=== PATIENT | male | born 1945 | race Caucasian/White ===

== ENCOUNTER 2017-12-01 14:26 | Inpatient (IN) | payer MEDICARE ==
[~2017-12-01] VITALS: Ht 172.7 cm; Wt 111.1 kg
[2017-12-01] MEDS ORDERED: ACETAMINOPHEN 325MG TABLET PO STA (14:47)
[2017-12-01] MEDS ORDERED: SODIUM CHLORIDE 0.9% 1000ML BAG (SEPSIS BOLUS) IV ONE (15:00)
[2017-12-01] MEDS ORDERED: PIPERACILLIN/TAZ 3.375G PREMIX 50 ML IV ONE (15:00)
[2017-12-01] MEDS ORDERED: VANCOMYCIN 1 G PREMIX 200 ML IV ONE (15:00)
[2017-12-01 15:37] LABS: BASOPHILS % 0.1 % (0.0-2.0); HEMATOCRIT. 33.9 % (42.0-52.0); HEMOGLOBIN. 11.4 g/dL (14.0-18.0); LYMPHOCYTES % 7.4 % (20.0-50.0); MEAN CORPUSCULAR HEMOGLOBIN 31.6 pg (28.0-32.0); MEAN CORPUSCULAR VOLUME 93.9 fL (80.0-94.0); MEAN PLATELET VOLUME 8.3 fl (7.4-10.4); NEUTROPHILS % 86.5 % (40.0-76.0); PLATELET 255 x1000/uL (130-400); RED BLOOD CELL COUNT 3.61 mill/uL (4.7-6.1); RED CELL DISTRIBUTION WIDTH 13.8 % (11.6-14.6)
[2017-12-01 15:39] LABS: CHLORIDE 90 mEq/L (98-107)
[2017-12-01 15:40] LABS: INR 1.2
[2017-12-01 16:03] LABS: BG BASE EXCESS -4.5 mmol/L (-2.0-2.0); BG CARBOXYHEMOGLOBIN 0.6 % (0.5-1.5); BG DEOXYHEMOGLOBIN 7.1 % (0.0-5.0); BG FRACTION INSPIRED OXYGEN 21; BG HCO3 ACT 20.1 mmol/L (22.0-26.0); BG METHEMOGLOBIN 0.2 % (0.0-1.5); BG OXYGEN SATURATION 92.8 % (92.0-98.5); BG OXYHEMOGLOBIN 92.1 % (94.0-97.0); BG PCO2 35.8 mmHg (35.0-45.0); BG PH 7.367 (7.350-7.450); BG PO2 71.3 mmHg (75.0-100.0); BG SAMPLE SITE RIGHT RADIAL; BG TOTAL HEMOGLOBIN 13.3 g/dL (12.0-18.0); BG VENT MODE ROOM AIR
[2017-12-01 16:37] LABS: CLARITY URINE CLEAR (CLEAR); COLOR URINE YELLOW (YELLOW); SPECIFIC GRAVITY URINE 1.026 (1.005-1.030)
[2017-12-01 16:38] LABS: KETONES URINE 1+ (NEGATIVE); LEUKOCYTE ESTERASE URINE NEGATIVE (NEGATIVE); NITRITE URINE NEGATIVE (NEGATIVE); OCCULT BLOOD URINE 2+ (NEGATIVE); PROTEIN URINE 3+ (NEGATIVE); UROBILINOGEN URINE 0.2 E.U./dL (0.2-1.0)
[2017-12-01] MEDS ORDERED: INSULIN REGULAR (HUMULIN R) UD 100 UNITS/ML SYR IV ONE (16:45)
[2017-12-01] MEDS ORDERED: INSULIN REGULAR (HUMULIN R) 300UNITS/3ML IV ONE (17:00)
[2017-12-01] MEDS ORDERED: SODIUM CHLORIDE 0.9% 1,000 ML IV ONE (20:17)
[2017-12-01] MEDS ORDERED: INSULIN REGULAR (HUMULIN R) 300UNITS/3ML SUBCUT ONE ×2 (20:30)
[2017-12-01 21:00] VITALS: BP 137/60
[2017-12-01] MEDS ORDERED: VANCOMYCIN 1 G PREMIX 200 ML IV SCH (22:00)
[2017-12-01] MEDS ORDERED: MAGNESIUM/ALUMINUM HYDROXIDE/SIMETHICONE 30ML UDC PO PRN (22:00)
[2017-12-01] MEDS ORDERED: PIPERACILLIN/TAZ 3.375G PREMIX 50 ML IV SCH (22:00)
[2017-12-01] MEDS: NITROGLYCERIN OINT 1GM/INCH UDPKT TD SCH (22:00)
[2017-12-01] MEDS ORDERED: DEXTROSE 50% WATER 50ML SYRINGE IV PRN (22:00)
[2017-12-01] MEDS ORDERED: ONDANSETRON HCL 4MG/2ML VIAL IV PRN (22:00)
[2017-12-01] MEDS ORDERED: DIPHENHYDRAMINE 50MG/ML VIAL IV PRN (22:00)
[2017-12-01] MEDS: SODIUM CHLORIDE 0.9% 1,000 ML IV SCH (23:13)
[2017-12-02] VITALS: BP 152/62
[2017-12-02] MEDS: PREDNISOLONE ACETATE 1% OPHTH DROPS 1ML RIGHTEYE SCH ×4 (00:19→18:35)
[2017-12-02] MEDS: INSULIN GLARGINE UD 100 UNITS/ML SYR SUBCUT SCH ×2 (00:25→21:57)
[2017-12-02] MEDS: PIPERACILLIN/TAZ 2.25G PREMIX 50 ML IV SCH ×4 (00:49→21:49)
[2017-12-02] MEDS ORDERED: ATOR20TA MT (01:17)
[2017-12-02] MEDS ORDERED: TRIC54 MT (01:17)
[2017-12-02] MEDS ORDERED: METO37.5 MT (01:17)
[2017-12-02] MEDS ORDERED: VIGAMX RIGHTEYE (01:17)
[2017-12-02] MEDS ORDERED: ESCI5SOL2 PO (01:17)
[2017-12-02] MEDS ORDERED: ALLO300T2 MT (01:17)
[2017-12-02] MEDS ORDERED: SULF-288 MT (01:17)
[2017-12-02] MEDS ORDERED: AMLO5TAB4 MT (01:17)
[2017-12-02] MEDS ORDERED: ISOS30TA6 MT (01:17)
[2017-12-02] MEDS ORDERED: GABA300S PO (01:17)
[2017-12-02] MEDS ORDERED: PRED1DRO RIGHTEYE (01:17)
[2017-12-02] MEDS ORDERED: OMEP40CA34 PO (01:17)
[2017-12-02] MEDS ORDERED: CLOP75TA16 MT (01:17)
[2017-12-02] MEDS ORDERED: ASPI-1159 MT (01:17)
[2017-12-02] MEDS ORDERED: GLIP-191 MT (01:17)
[2017-12-02] MEDS ORDERED: LOSA1TAB34 MT (01:17)
[2017-12-02] MEDS ORDERED: METF-815 PO (01:17)
[2017-12-02] MEDS ORDERED: ACUL5 RIGHTEYE (01:17)
[2017-12-02] MEDS: VANCOMYCIN 1250MG in DEXTROSE 5% WATER 250ML IV SCH (02:08)
[2017-12-02] MEDS: MORPHINE SULFATE 4 MG/ML CPJ (NOT FOR IM USE) IV PRN ×2 (02:17→08:39)
[2017-12-02 04:00] VITALS: BP 103/56
[2017-12-02] MEDS: BLOOD SUGAR DIAGNOSTIC STRIP TEST SCH ×4 (05:55→21:49)
[2017-12-02] MEDS: NITROGLYCERIN OINT 1GM/INCH UDPKT TD SCH ×3 (05:56→21:51)
[2017-12-02] MEDS: INSULIN LISPRO 100 UNITS/ML SUBCUT SCH ×4 (06:23→21:57)
[2017-12-02 07:37] LABS: BASOPHILS % 0.2 % (0.0-2.0); EOSINOPHILS % 0.3 % (0.0-5.0); HEMOGLOBIN. 10.7 g/dL (14.0-18.0); LYMPHOCYTES % 13.6 % (20.0-50.0); MEAN CORPUSCULAR HEMOGLOBIN 31.6 pg (28.0-32.0); MEAN CORPUSCULAR VOLUME 91.8 fL (80.0-94.0); MONOCYTES % 4.5 % (2.0-8.0); NEUTROPHILS % 81.4 % (40.0-76.0); PLATELET 230 x1000/uL (130-400); RED BLOOD CELL COUNT 3.38 mill/uL (4.7-6.1); RED CELL DISTRIBUTION WIDTH 13.5 % (11.6-14.6)
[2017-12-02 08:00] VITALS: BP 119/43
[2017-12-02] MEDS: SODIUM CHLORIDE 0.9% 1,000 ML IV SCH ×2 (08:23→14:57)
[2017-12-02] MEDS: PANTOPRAZOLE SODIUM 40 MG/VIAL IV SCH (08:24)
[2017-12-02] MEDS: ENOXAPARIN 30MG/0.3ML SYR SUBCUT SCH ×2 (08:24→21:00)
[2017-12-02] MEDS ORDERED: ENOXAPARIN 40MG/0.4ML SYR SUBCUT SCH (09:00)
[2017-12-02] MEDS ORDERED: ENOXAPARIN 30MG/0.3ML SYR SUBCUT SCH ×2 (09:00)
[2017-12-02] MEDS ORDERED: BACITRACIN ZINC 15GM TUBE TOP ONE (09:37)
[2017-12-02] MEDS ORDERED: NORMAL SALINE 0.9% 10 ML SYR ONE (09:37)
[2017-12-02] MEDS ORDERED: LIDOCAINE HCL/PF 1% 10 MG/ML 5ML VIAL ONE (09:37)
[2017-12-02] MEDS ORDERED: BUPIVACAINE HCL/PF 0.5% (5MG/ML) 10ML ONE (09:37)
[2017-12-02] MEDS ORDERED: SODIUM CHLORIDE 0.9% IRRIG SOL 3,000 ML IR ONE (09:38)
[2017-12-02] MEDS ORDERED: BACITRACIN 50,000 UNITS/VIAL ONE (09:38)
[2017-12-02] MEDS ORDERED: DEXAMETHASONE 4MG/ML 1ML VIAL ONE (09:47)
[2017-12-02] MEDS ORDERED: TRIAMCINOLONE ACETONIDE 40MG/ML 1ML VIAL ONE (09:47)
[2017-12-02] MEDS ORDERED: GENTAMICIN SULF 40MG/ML 2ML VIAL ONE (09:47)
[2017-12-02] MEDS ORDERED: MIDAZOLAM HCL 2 MG/2 ML VIAL ONE (09:53)
[2017-12-02] MEDS ORDERED: FENTANYL CITRATE/PF 50MCG/ML 2ML VIAL ONE (09:53)
[2017-12-02] MEDS ORDERED: ROCURONIUM BROMIDE 10MG/ML VIAL 5ML IV ONE (09:53)
[2017-12-02] MEDS ORDERED: METOCLOPRAMIDE HCL 10MG/2ML VIAL ONE (09:56)
[2017-12-02] MEDS ORDERED: ONDANSETRON HCL 4MG/2ML VIAL ONE (09:56)
[2017-12-02] MEDS ORDERED: ETOMIDATE 2MG/ML 10ML VIAL IV ONE (09:56)
[2017-12-02] MEDS ORDERED: SUCCINYLCHOLINE CHLORIDE 200MG/10ML VIAL IV ONE (09:56)
[2017-12-02] MEDS ORDERED: EPHEDRINE SULFATE 50MG/ML VIAL ONE (09:56)
[2017-12-02] MEDS ORDERED: MAGNESIUM SULFATE 2 GM in DEXTROSE 5% WATER 50 ML IV NR (10:30)
[2017-12-02] MEDS ORDERED: ONDANSETRON HCL 4MG/2ML VIAL IV PRN ×3 (10:45→11:30)
[2017-12-02] MEDS ORDERED: MEPERIDINE HCL/PF 25MG/ML CPJ IV PRN ×2 (10:45)
[2017-12-02] MEDS ORDERED: MORPHINE SULFATE 4 MG/ML CPJ (NOT FOR IM USE) IV PRN ×2 (10:45)
[2017-12-02] MEDS ORDERED: HYDROMORPHONE HCL/PF 2MG/ML CPJ IV PRN ×2 (10:45)
[2017-12-02] MEDS ORDERED: FENTANYL CITRATE/PF 50MCG/ML 2ML VIAL IV PRN ×2 (10:45)
[2017-12-02 16:00] VITALS: BP 147/68
[2017-12-02 20:00] VITALS: BP 143/58
[2017-12-03] VITALS: BP 140/49
[2017-12-03] MEDS: IPRATROPIUM/ALBUTEROL 0.5-3(2.5)MG/3ML NEB INH PRN ×2 (00:08→21:00)
[2017-12-03] MEDS: PREDNISOLONE ACETATE 1% OPHTH DROPS 1ML RIGHTEYE SCH ×4 (00:13→17:38)
[2017-12-03] MEDS: ACETAMINOPHEN 325MG TABLET PO PRN ×3 (00:14→23:50)
[2017-12-03] MEDS: SODIUM CHLORIDE 0.9% 1,000 ML IV SCH ×4 (00:14→22:57)
[2017-12-03] MEDS: VANCOMYCIN 1250MG in DEXTROSE 5% WATER 250ML IV SCH ×2 (02:57→18:49)
[2017-12-03 04:00] VITALS: BP 150/63
[2017-12-03] MEDS: PIPERACILLIN/TAZ 2.25G PREMIX 50 ML IV SCH ×5 (04:33→22:10)
[2017-12-03] MEDS: NITROGLYCERIN OINT 1GM/INCH UDPKT TD SCH ×3 (05:34→21:27)
[2017-12-03] MEDS: BLOOD SUGAR DIAGNOSTIC STRIP TEST SCH ×4 (06:35→20:53)
[2017-12-03] MEDS: INSULIN LISPRO 100 UNITS/ML SUBCUT SCH ×4 (06:49→21:26)
[2017-12-03 07:53] VITALS: BP 105/48
[2017-12-03] MEDS: ENOXAPARIN 30MG/0.3ML SYR SUBCUT SCH ×2 (09:00→21:00)
[2017-12-03] MEDS ORDERED: SODIUM BICARBONATE 4% (2.4MEQ) 5ML VIAL IV ONE (11:37)
[2017-12-03] MEDS ORDERED: LIDOCAINE HCL 1% 20ML VIAL (Pyxis) INJ ONE (11:37)
[2017-12-03 12:00] VITALS: BP 135/61
[2017-12-03] MEDS: PANTOPRAZOLE SODIUM 40 MG/VIAL IV SCH (13:22)
[2017-12-03] MEDS: MORPHINE SULFATE 4 MG/ML CPJ (NOT FOR IM USE) IV PRN ×2 (13:27→17:00)
[2017-12-03 15:43] LABS: BASOPHILS % 0.1 % (0.0-2.0); EOSINOPHILS % 0.6 % (0.0-5.0); HEMATOCRIT. 28.8 % (42.0-52.0); HEMOGLOBIN. 9.9 g/dL (14.0-18.0); LYMPHOCYTES % 11.5 % (20.0-50.0); MEAN CORPUSCULAR HEMOGLOBIN 32.1 pg (28.0-32.0); MEAN CORPUSCULAR VOLUME 93.5 fL (80.0-94.0); MEAN PLATELET VOLUME 8.1 fl (7.4-10.4); MONOCYTES % 5.1 % (2.0-8.0); NEUTROPHILS % 82.7 % (40.0-76.0); PLATELET 198 x1000/uL (130-400); RED BLOOD CELL COUNT 3.08 mill/uL (4.7-6.1)
[2017-12-03 16:00] VITALS: BP 123/49
[2017-12-03 20:00] VITALS: BP 132/58
[2017-12-03] MEDS: INSULIN GLARGINE UD 100 UNITS/ML SYR SUBCUT SCH (21:26)
[2017-12-04] VITALS: BP 144/60
[2017-12-04] MEDS: PREDNISOLONE ACETATE 1% OPHTH DROPS 1ML RIGHTEYE SCH ×4 (00:19→18:43)
[2017-12-04] MEDS: SODIUM CHLORIDE 0.9% 1,000 ML IV SCH ×2 (03:39→21:14)
[2017-12-04] MEDS: PIPERACILLIN/TAZ 2.25G PREMIX 50 ML IV SCH ×4 (03:39→21:14)
[2017-12-04 04:00] VITALS: BP 133/57
[2017-12-04] MEDS: VANCOMYCIN 1250MG in DEXTROSE 5% WATER 250ML IV SCH (05:34)
[2017-12-04] MEDS: BLOOD SUGAR DIAGNOSTIC STRIP TEST SCH ×4 (05:44→20:46)
[2017-12-04] MEDS: NITROGLYCERIN OINT 1GM/INCH UDPKT TD SCH ×3 (06:10→21:44)
[2017-12-04] MEDS: INSULIN LISPRO 100 UNITS/ML SUBCUT SCH ×4 (06:11→20:51)
[2017-12-04 08:00] VITALS: BP 140/59
[2017-12-04] MEDS: ENOXAPARIN 30MG/0.3ML SYR SUBCUT SCH ×2 (09:34→20:46)
[2017-12-04] MEDS: FAMOTIDINE 20MG TABLET PO SCH ×2 (09:34→20:46)
[2017-12-04] MEDS: MORPHINE SULFATE 4 MG/ML CPJ (NOT FOR IM USE) IV PRN ×3 (09:39→22:33)
[2017-12-04] MEDS: ACETAMINOPHEN 325MG TABLET PO PRN ×2 (09:39→23:48)
[2017-12-04 12:00] VITALS: BP 113/53
[2017-12-04] MEDS ORDERED: FUROSEMIDE 40MG/4ML VIAL IVP NR (15:15)
[2017-12-04] MEDS: IPRATROPIUM/ALBUTEROL 0.5-3(2.5)MG/3ML NEB INH PRN (15:37)
[2017-12-04 20:00] VITALS: BP 135/51
[2017-12-04] MEDS: INSULIN GLARGINE UD 100 UNITS/ML SYR SUBCUT SCH (21:33)
[2017-12-05] VITALS: BP 143/59
[2017-12-05] MEDS: PREDNISOLONE ACETATE 1% OPHTH DROPS 1ML RIGHTEYE SCH ×4 (03:51→18:17)
[2017-12-05] MEDS: HYDROMORPHONE HCL/PF 2MG/ML CPJ IV PRN ×4 (03:57→22:26)
[2017-12-05 04:00] VITALS: BP 149/62
[2017-12-05] MEDS: PIPERACILLIN/TAZ 2.25G PREMIX 50 ML IV SCH ×4 (04:36→21:23)
[2017-12-05] MEDS: BLOOD SUGAR DIAGNOSTIC STRIP TEST SCH ×4 (05:57→21:19)
[2017-12-05] MEDS: INSULIN LISPRO 100 UNITS/ML SUBCUT SCH ×4 (06:04→21:28)
[2017-12-05 06:21] LABS: BASOPHILS % 0.4 % (0.0-2.0); EOSINOPHILS % 0.8 % (0.0-5.0); HEMATOCRIT. 28.9 % (42.0-52.0); HEMOGLOBIN. 9.9 g/dL (14.0-18.0); LYMPHOCYTES % 17.4 % (20.0-50.0); MEAN CORPUSCULAR HEMOGLOBIN 31.9 pg (28.0-32.0); MEAN CORPUSCULAR VOLUME 93.5 fL (80.0-94.0); MEAN PLATELET VOLUME 8.3 fl (7.4-10.4); MONOCYTES % 5.6 % (2.0-8.0); NEUTROPHILS % 75.8 % (40.0-76.0); PLATELET 194 x1000/uL (130-400); RED BLOOD CELL COUNT 3.09 mill/uL (4.7-6.1); RED CELL DISTRIBUTION WIDTH 13.6 % (11.6-14.6)
[2017-12-05] MEDS: NITROGLYCERIN OINT 1GM/INCH UDPKT TD SCH ×3 (06:42→22:18)
[2017-12-05] MEDS ORDERED: SODIUM CHLORIDE 0.9% 1,000 ML IV SCH (08:35)
[2017-12-05 08:38] VITALS: BP 130/58
[2017-12-05] MEDS: FAMOTIDINE 20MG TABLET PO SCH ×2 (09:51→21:23)
[2017-12-05] MEDS: ENOXAPARIN 30MG/0.3ML SYR SUBCUT SCH (09:51)
[2017-12-05] MEDS ORDERED: POTASSIUM CHLORIDE 20MEQ TABLET SR PO SCH (10:45)
[2017-12-05 11:47] VITALS: BP 135/54
[2017-12-05 15:41] VITALS: BP 133/55
[2017-12-05] MEDS: CLOPIDOGREL 75MG TABLET PO SCH (16:06)
[2017-12-05] MEDS: ASPIRIN 81MG TABLET PO SCH (16:06)
[2017-12-05 16:33] LABS: BG BASE EXCESS 5.5 mmol/L (-2.0-2.0); BG CARBOXYHEMOGLOBIN 0.1 % (0.5-1.5); BG DEOXYHEMOGLOBIN 8.7 % (0.0-5.0); BG FRACTION INSPIRED OXYGEN 24; BG HCO3 ACT 30.9 mmol/L (22.0-26.0); BG METHEMOGLOBIN 0.3 % (0.0-1.5); BG OXYGEN SATURATION 91.3 % (92.0-98.5); BG OXYHEMOGLOBIN 90.9 % (94.0-97.0); BG PCO2 48.8 mmHg (35.0-45.0); BG PH 7.419 (7.350-7.450); BG PO2 58.6 mmHg (75.0-100.0); BG SAMPLE SITE LEFT RADIAL; BG TOTAL HEMOGLOBIN 10.7 g/dL (12.0-18.0); BG VENT MODE NASAL CANNULA
[2017-12-05 20:00] VITALS: BP 141/52
[2017-12-05] MEDS: IPRATROPIUM/ALBUTEROL 0.5-3(2.5)MG/3ML NEB HHN SCH (20:53)
[2017-12-05] MEDS: INSULIN GLARGINE UD 100 UNITS/ML SYR SUBCUT SCH (21:28)
[2017-12-06] VITALS: BP 145/60
[2017-12-06] MEDS: PREDNISOLONE ACETATE 1% OPHTH DROPS 1ML RIGHTEYE SCH ×4 (00:51→17:28)
[2017-12-06] MEDS: IPRATROPIUM/ALBUTEROL 0.5-3(2.5)MG/3ML NEB HHN SCH ×4 (01:32→20:05)
[2017-12-06] MEDS: PIPERACILLIN/TAZ 2.25G PREMIX 50 ML IV SCH ×3 (03:01→18:00)
[2017-12-06] MEDS: HYDROMORPHONE HCL/PF 2MG/ML CPJ IV PRN ×3 (03:07→11:56)
[2017-12-06 04:00] VITALS: BP 138/59
[2017-12-06] MEDS: BLOOD SUGAR DIAGNOSTIC STRIP TEST SCH ×4 (06:25→20:58)
[2017-12-06] MEDS: NITROGLYCERIN OINT 1GM/INCH UDPKT TD SCH ×3 (06:27→21:08)
[2017-12-06] MEDS: INSULIN LISPRO 100 UNITS/ML SUBCUT SCH ×4 (06:40→20:58)
[2017-12-06 07:33] LABS: HEMATOCRIT 29.4 % (42.0-52.0); MEAN CORPUSCULAR HEMOGLOBIN 31.8 pg (28.0-32.0); MEAN CORPUSCULAR VOLUME 93.6 fL (80.0-94.0); PLATELET 218 x1000/uL (130-400); RED BLOOD CELL COUNT 3.14 mill/uL (4.7-6.1); RED CELL DISTRIBUTION WIDTH 13.6 % (11.6-14.6)
[2017-12-06] MEDS: FAMOTIDINE 20MG TABLET PO SCH ×2 (08:16→21:09)
[2017-12-06] MEDS: CLOPIDOGREL 75MG TABLET PO SCH (08:16)
[2017-12-06] MEDS: ASPIRIN 81MG TABLET PO SCH (08:16)
[2017-12-06 12:00] VITALS: BP 104/64
[2017-12-06 12:30] LABS: BG BASE EXCESS 6.1 mmol/L (-2.0-2.0); BG CARBOXYHEMOGLOBIN 0.4 % (0.5-1.5); BG DEOXYHEMOGLOBIN 18.1 % (0.0-5.0); BG FRACTION INSPIRED OXYGEN 21; BG HCO3 ACT 31.8 mmol/L (22.0-26.0); BG METHEMOGLOBIN 0.1 % (0.0-1.5); BG OXYGEN SATURATION 81.8 % (92.0-98.5); BG OXYHEMOGLOBIN 81.4 % (94.0-97.0); BG PCO2 51.4 mmHg (35.0-45.0); BG PH 7.409 (7.350-7.450); BG PO2 47.1 mmHg (75.0-100.0); BG SAMPLE SITE LEFT RADIAL; BG TOTAL HEMOGLOBIN 10.4 g/dL (12.0-18.0); BG VENT MODE ROOM AIR
[2017-12-06 14:07] LABS: BG BASE EXCESS 4.4 mmol/L (-2.0-2.0); BG CARBOXYHEMOGLOBIN 0.7 % (0.5-1.5); BG DEOXYHEMOGLOBIN 5.8 % (0.0-5.0); BG HCO3 ACT 30.2 mmol/L (22.0-26.0); BG METHEMOGLOBIN 0.1 % (0.0-1.5); BG OXYGEN SATURATION 94.2 % (92.0-98.5); BG OXYHEMOGLOBIN 93.4 % (94.0-97.0); BG PH 7.391 (7.350-7.450); BG PO2 75.3 mmHg (75.0-100.0); BG SAMPLE SITE RIGHT RADIAL; BG TOTAL HEMOGLOBIN 11.6 g/dL (12.0-18.0); BG VENT MODE NASAL CANNULA
[2017-12-06 16:00] VITALS: BP 147/58
[2017-12-06] MEDS ORDERED: MORPHINE SULFATE 4 MG/ML CPJ (NOT FOR IM USE) IV PRN (18:00)
[2017-12-06] MEDS: PIPERACILLIN/TAZ 3.375G PREMIX 50 ML IV SCH (18:00)
[2017-12-06 20:00] VITALS: BP 163/68
[2017-12-06] MEDS: CLONIDINE 0.1MG TABLET PO PRN (21:08)
[2017-12-06] MEDS: INSULIN GLARGINE UD 100 UNITS/ML SYR SUBCUT SCH (21:13)
[2017-12-07] VITALS: BP 153/60
[2017-12-07] MEDS: PREDNISOLONE ACETATE 1% OPHTH DROPS 1ML RIGHTEYE SCH ×4 (00:11→17:41)
[2017-12-07] MEDS: ACETAMINOPHEN 325MG TABLET PO PRN ×3 (00:19→20:22)
[2017-12-07] MEDS: PIPERACILLIN/TAZ 3.375G PREMIX 50 ML IV SCH ×4 (00:34→17:40)
[2017-12-07] MEDS: IPRATROPIUM/ALBUTEROL 0.5-3(2.5)MG/3ML NEB HHN SCH ×2 (01:46→08:19)
[2017-12-07 04:00] VITALS: BP 162/62
[2017-12-07] MEDS: BLOOD SUGAR DIAGNOSTIC STRIP TEST SCH ×4 (06:23→20:40)
[2017-12-07] MEDS: NITROGLYCERIN OINT 1GM/INCH UDPKT TD SCH ×3 (06:50→21:15)
[2017-12-07] MEDS: INSULIN LISPRO 100 UNITS/ML SUBCUT SCH ×4 (06:50→20:40)
[2017-12-07 07:31] LABS: HEMATOCRIT 30.3 % (42.0-52.0); HEMOGLOBIN 10.3 g/dL (14.0-18.0); MEAN CORPUSCULAR HEMOGLOBIN 31.5 pg (28.0-32.0); MEAN CORPUSCULAR VOLUME 92.7 fL (80.0-94.0); PLATELET 260 x1000/uL (130-400); RED BLOOD CELL COUNT 3.27 mill/uL (4.7-6.1); RED CELL DISTRIBUTION WIDTH 13.8 % (11.6-14.6)
[2017-12-07 08:00] VITALS: BP 144/53
[2017-12-07] MEDS: FAMOTIDINE 20MG TABLET PO SCH ×2 (09:52→20:22)
[2017-12-07] MEDS: ASPIRIN 81MG TABLET PO SCH (09:52)
[2017-12-07] MEDS: CLOPIDOGREL 75MG TABLET PO SCH (09:52)
[2017-12-07] MEDS ORDERED: POTASSIUM CHLORIDE 20MEQ TABLET SR PO NR (10:45)
[2017-12-07 12:40] VITALS: BP 141/52
[2017-12-07] MEDS ORDERED: MORPHINE SULFATE 4 MG/ML CPJ (NOT FOR IM USE) IV PRN (13:00)
[2017-12-07 16:23] VITALS: BP 153/76
[2017-12-07 20:00] VITALS: BP 161/67
[2017-12-07] MEDS ORDERED: INSULIN GLARGINE UD 100 UNITS/ML SYR SUBCUT SCH ×2 (22:00)
[2017-12-08] VITALS: BP 150/68
[2017-12-08] MEDS: PREDNISOLONE ACETATE 1% OPHTH DROPS 1ML RIGHTEYE SCH ×3 (00:04→11:26)
[2017-12-08] MEDS: PIPERACILLIN/TAZ 3.375G PREMIX 50 ML IV SCH ×3 (00:04→11:26)
[2017-12-08] MEDS: IPRATROPIUM/ALBUTEROL 0.5-3(2.5)MG/3ML NEB HHN SCH ×3 (01:55→14:45)
[2017-12-08 04:00] VITALS: BP 137/68
[2017-12-08] MEDS: NITROGLYCERIN OINT 1GM/INCH UDPKT TD SCH ×2 (05:10→14:25)
[2017-12-08] MEDS: INSULIN LISPRO 100 UNITS/ML SUBCUT SCH ×3 (06:22→17:02)
[2017-12-08] MEDS: BLOOD SUGAR DIAGNOSTIC STRIP TEST SCH ×3 (06:22→17:02)
[2017-12-08 06:57] LABS: HEMATOCRIT 28.8 % (42.0-52.0); MEAN CORPUSCULAR HEMOGLOBIN 32.1 pg (28.0-32.0); MEAN CORPUSCULAR VOLUME 92.3 fL (80.0-94.0); PLATELET 273 x1000/uL (130-400); RED BLOOD CELL COUNT 3.12 mill/uL (4.7-6.1); RED CELL DISTRIBUTION WIDTH 13.8 % (11.6-14.6)
[2017-12-08 08:00] VITALS: BP 189/66
[2017-12-08] MEDS: FAMOTIDINE 20MG TABLET PO SCH (08:12)
[2017-12-08] MEDS: CLOPIDOGREL 75MG TABLET PO SCH (08:12)
[2017-12-08] MEDS: CLONIDINE 0.1MG TABLET PO PRN (08:12)
[2017-12-08] MEDS: ASPIRIN 81MG TABLET PO SCH (08:12)
[2017-12-08 12:00] VITALS: BP 128/74
[2017-12-08] MEDS ORDERED: POTASSIUM CHLORIDE 20MEQ TABLET SR PO NR (12:45)
[2017-12-08 12:49] VITALS: BP 123/70
[2017-12-08 16:00] VITALS: BP 153/71
== END 2017-12-08 18:34 | DRG 853 ==
LOC: ER 14:36 → EDBD 17:05 → 8WST 17:05 → EDBEDREQ 17:07 → EDBEDREQSVC 17:07 → ENRESERV 19:44
PROVIDERS: ADMIT Internal Medicine; ATTEND Internal Medicine
PROC: 0Y6N0ZB Detachment at Left Foot, Partial 2nd Ray, Open Approach (ICD-10-PCS; 2017-12-02)
PROC: 0Y6N0ZC Detachment at Left Foot, Partial 3rd Ray, Open Approach (ICD-10-PCS; 2017-12-02)
PROC: 0QBP0ZZ Excision of Left Metatarsal, Open Approach (ICD-10-PCS; principal; 2017-12-02 09:00)
PROC: B5181ZA Fluoroscopy of Superior Vena Cava using Low Osmolar Contrast, Guidance (ICD-10-PCS; 2017-12-03)
PROC: 02HV33Z Insertion of Infusion Device into Superior Vena Cava, Percutaneous Approach (ICD-10-PCS; 2017-12-03)
PROC: B548ZZA Ultrasonography of Superior Vena Cava, Guidance (ICD-10-PCS; 2017-12-03)
DX: A41.9 Sepsis, unspecified organism (principal); E43 Unspecified severe protein-calorie malnutrition; A48.0 Gas gangrene; L03.115 Cellulitis of right lower limb; E87.3 Alkalosis; L02.612 Cutaneous abscess of left foot; L03.116 Cellulitis of left lower limb; E11.52 Type 2 diabetes mellitus with diabetic peripheral angiopathy with gangrene; N17.9 Acute kidney failure, unspecified; M86.9 Osteomyelitis, unspecified; E11.65 Type 2 diabetes mellitus with hyperglycemia; I25.10 Atherosclerotic heart disease of native coronary artery without angina pectoris; I10 Essential (primary) hypertension; D64.9 Anemia, unspecified; E66.9 Obesity, unspecified; E78.00 Pure hypercholesterolemia, unspecified; E87.6 Hypokalemia; F17.290 Nicotine dependence, other tobacco product, uncomplicated; J45.909 Unspecified asthma, uncomplicated; M10.9 Gout, unspecified; W25.XXXA Contact with sharp glass, initial encounter; E11.69 Type 2 diabetes mellitus with other specified complication; W45.8XXA Other foreign body or object entering through skin, initial encounter; Z79.4 Long term (current) use of insulin; R65.20 Severe sepsis without septic shock; Z82.49 Family history of ischemic heart disease and other diseases of the circulatory system; Z83.3 Family history of diabetes mellitus; Z91.14 Patient's other noncompliance with medication regimen; Z68.37 Body mass index [BMI] 37.0-37.9, adult; Z95.5 Presence of coronary angioplasty implant and graft; Y93.89 Activity, other specified; Y92.89 Other specified places as the place of occurrence of the external cause; Y99.8 Other external cause status
CPT/HCPCS: 36415; 36569; 36600; 70450; 71045; 73630; 76937; 77001; 80048; 80053; 80202; 81003; 82375; 82805; 82962; 83036; 83605; 83735; 84550; 85025; 85027; 85610; 86850; 86900; 87040; 87070; 87075; 87076; 87086; 87205; 88305; 88311; 93005; 93306; 93923; 94002; 94640; 96365; 96368; 96372; 96375; 97022; 97116; 97162; 99291; A4216; C1725; C9113; J0330; J1100; J1170; J1580; J1650; J1815; J1940; J2250; J2270; J2405; J2543; J2765; J3010; J3301; J3370; J3475; J3490; J7030; J7040; J7060; J7620

== ENCOUNTER 2021-02-24 19:37 | Inpatient (IN) | payer MEDICARE ==
[~2021-02-24] VITALS: Ht 175.3 cm; Wt 99.8 kg
[~2021-02-24 19:37] MED LIST: ACUL5 RIGHTEYE; ALLO300T2 MT; AMLO5TAB4 MT; ASPI-1497 MT; ATOR20TA MT; CLOP-31 MT; ESCI5SOL2 PO; GABA300S PO; GLIP-191 MT; ISOS30TA91 MT; LOSA1TAB34 MT; METF-873 PO; METO37.5 MT; OMEP40CA20 PO; PRED1DRO RIGHTEYE; SULF-13 MT; TRIC54 MT; VIGAMX RIGHTEYE
[2021-02-24 20:46] LABS: BASOPHILS % 0.1 % (0.0-2.0); EOSINOPHILS % 1.1 % (0.0-5.0); HEMOGLOBIN. 9.5 g/dL (14.0-18.0); LYMPHOCYTES % 9.6 % (20.0-50.0); MEAN CORPUSCULAR HEMOGLOBIN 32.3 pg (28.0-32.0); MEAN CORPUSCULAR VOLUME 98.7 fL (80.0-94.0); MEAN PLATELET VOLUME 7.1 fl (7.4-10.4); MONOCYTES % 5.8 % (2.0-8.0); NEUTROPHILS % 83.4 % (40.0-76.0); PLATELET 139 x1000/uL (130-400); RED BLOOD CELL COUNT 2.94 mill/uL (4.7-6.1); RED CELL DISTRIBUTION WIDTH 15.9 % (11.6-14.6)
[2021-02-24 20:54] LABS: CHLORIDE 105 mEq/L (98-107)
[2021-02-24 23:50] VITALS: BP 114/47
[2021-02-25] VITALS: BP 114/47
[2021-02-25 04:00] VITALS: BP 93/42
[2021-02-25] MEDS ORDERED: DEXTROSE 50% WATER 50ML SYRINGE IV PRN (05:00)
[2021-02-25] MEDS ORDERED: HYDROCODONE/ACETAMINOPHEN 5/325MG TABLET PO PRN (05:00)
[2021-02-25] MEDS ORDERED: SODIUM CHLORIDE 0.45% 1,000 ML IV SCH (05:00)
[2021-02-25] MEDS ORDERED: NALOXONE HCL 0.4 MG/ML 1ML VIAL IV PRN (05:15)
[2021-02-25] MEDS ORDERED: FURO40TA5 MT (05:25)
[2021-02-25] MEDS ORDERED: ATOR40TA70 MT (05:27)
[2021-02-25] MEDS ORDERED: OMEP40CA20 PO (05:29)
[2021-02-25] MEDS ORDERED: TAMS-11 PO (05:30)
[2021-02-25] MEDS ORDERED: ISOS30TA91 PO (05:34)
[2021-02-25] MEDS ORDERED: FOLI0.8T23 MT (05:35)
[2021-02-25] MEDS: INSULIN LISPRO 100 UNITS/ML SUBCUT SCH ×4 (07:50→21:35)
[2021-02-25] MEDS: BLOOD SUGAR DIAGNOSTIC STRIP TEST SCH ×4 (07:55→21:13)
[2021-02-25 08:00] VITALS: BP 141/56
[2021-02-25] MEDS ORDERED: PIPERACILLIN/TAZOBACTAM 3.375 G in DEXTROSE 5% WATER 50 ML IV SCH (08:00)
[2021-02-25] MEDS: PANTOPRAZOLE SODIUM 40 MG/VIAL IV SCH (08:10)
[2021-02-25] MEDS: TAMSULOSIN HCL 0.4MG SR CAPSULE PO SCH (08:18)
[2021-02-25] MEDS: FUROSEMIDE 40MG TABLET PO SCH (08:18)
[2021-02-25] MEDS: ISOSORBIDE MONONITRATE 30MG TABLET SR 24HR PO SCH (08:24)
[2021-02-25] MEDS ORDERED: *PATIENT'S OWN MEDICATION STORAGE XX SCH (10:15)
[2021-02-25 10:31] LABS: HEMATOCRIT 29.4 % (42.0-52.0); HEMOGLOBIN 9.7 g/dL (14.0-18.0); MEAN CORPUSCULAR HEMOGLOBIN 31.7 pg (28.0-32.0); MEAN CORPUSCULAR VOLUME 96.1 fL (80.0-94.0); PLATELET 161 x1000/uL (130-400); RED BLOOD CELL COUNT 3.06 mill/uL (4.7-6.1); RED CELL DISTRIBUTION WIDTH 15.8 % (11.6-14.6)
[2021-02-25 10:37] LABS: CHLORIDE 106 mEq/L (98-107)
[2021-02-25 12:00] VITALS: BP 104/47
[2021-02-25 12:54] LABS: INR 1.1; PROTHROMBIN TIME 12.1 sec (9.6-11.0)
[2021-02-25] MEDS ORDERED: MEROPENEM 500 MG in SODIUM CHLORIDE 0.9% 50 ML IV SCH (14:15)
[2021-02-25 16:00] VITALS: BP 115/47
[2021-02-25] MEDS: MEROPENEM 1000MG in NORMAL SALINE 100ML IV SCH (17:41)
[2021-02-25 20:00] VITALS: BP 104/45
[2021-02-25] MEDS: ATORVASTATIN CALCIUM 40MG TABLET PO SCH (21:35)
[2021-02-26] VITALS: BP 99/48
[2021-02-26 04:00] VITALS: BP 105/39
[2021-02-26] MEDS: BLOOD SUGAR DIAGNOSTIC STRIP TEST SCH ×4 (06:21→21:41)
[2021-02-26 06:35] LABS: BASOPHILS % 0.2 % (0.0-2.0); EOSINOPHILS % 1.6 % (0.0-5.0); HEMOGLOBIN. 9.6 g/dL (14.0-18.0); LYMPHOCYTES % 23.7 % (20.0-50.0); MEAN CORPUSCULAR HEMOGLOBIN 32.5 pg (28.0-32.0); MEAN CORPUSCULAR VOLUME 97.9 fL (80.0-94.0); MEAN PLATELET VOLUME 7.8 fl (7.4-10.4); MONOCYTES % 6.8 % (2.0-8.0); NEUTROPHILS % 67.7 % (40.0-76.0); PLATELET 162 x1000/uL (130-400); RED BLOOD CELL COUNT 2.97 mill/uL (4.7-6.1); RED CELL DISTRIBUTION WIDTH 15.9 % (11.6-14.6)
[2021-02-26] MEDS: INSULIN LISPRO 100 UNITS/ML SUBCUT SCH ×4 (06:51→21:44)
[2021-02-26 07:00] LABS: CHLORIDE 105 mEq/L (98-107)
[2021-02-26 08:11] LABS: PHOSPHORUS 8.3 mg/dL (2.5-4.9)
[2021-02-26] MEDS: PANTOPRAZOLE SODIUM 40 MG/VIAL IV SCH (09:58)
[2021-02-26] MEDS: FUROSEMIDE 40MG TABLET PO SCH (09:59)
[2021-02-26] MEDS: TAMSULOSIN HCL 0.4MG SR CAPSULE PO SCH (09:59)
[2021-02-26] MEDS: ISOSORBIDE MONONITRATE 30MG TABLET SR 24HR PO SCH (09:59)
[2021-02-26] MEDS: MEROPENEM 1000MG in NORMAL SALINE 100ML IV SCH (18:01)
[2021-02-26 20:00] VITALS: BP 92/27
[2021-02-26] MEDS: EPOETIN ALFA-EPBX 10,000 UNIT/ML VIAL SUBCUT SCH (21:29)
[2021-02-26] MEDS: ATORVASTATIN CALCIUM 40MG TABLET PO SCH (21:30)
[2021-02-27] VITALS: BP 131/71
[2021-02-27 02:03] LABS: HEPATITIS B SURFACE ANTIGEN NEGATIVE
[2021-02-27 04:00] VITALS: BP 110/29
[2021-02-27] MEDS: BLOOD SUGAR DIAGNOSTIC STRIP TEST SCH ×4 (05:43→21:50)
[2021-02-27] MEDS: INSULIN LISPRO 100 UNITS/ML SUBCUT SCH ×4 (07:50→21:00)
[2021-02-27 08:00] VITALS: BP 114/64
[2021-02-27] MEDS: ISOSORBIDE MONONITRATE 30MG TABLET SR 24HR PO SCH (09:00)
[2021-02-27] MEDS: FAMOTIDINE 20MG TABLET PO SCH (09:00)
[2021-02-27] MEDS: TAMSULOSIN HCL 0.4MG SR CAPSULE PO SCH (09:00)
[2021-02-27] MEDS: FUROSEMIDE 40MG TABLET PO SCH (09:00)
[2021-02-27 11:48] LABS: BASOPHILS % 0.4 % (0.0-2.0); EOSINOPHILS % 2.9 % (0.0-5.0); HEMATOCRIT. 30.1 % (42.0-52.0); LYMPHOCYTES % 24.9 % (20.0-50.0); MEAN CORPUSCULAR VOLUME 95.9 fL (80.0-94.0); MEAN PLATELET VOLUME 7.5 fl (7.4-10.4); MONOCYTES % 7.4 % (2.0-8.0); NEUTROPHILS % 64.4 % (40.0-76.0); PLATELET 178 x1000/uL (130-400); RED BLOOD CELL COUNT 3.14 mill/uL (4.7-6.1); RED CELL DISTRIBUTION WIDTH 15.7 % (11.6-14.6)
[2021-02-27 11:54] LABS: CHLORIDE 113 mEq/L (98-107)
[2021-02-27 12:00] VITALS: BP 119/40
[2021-02-27] MEDS: MEROPENEM 1000MG in NORMAL SALINE 100ML IV SCH (13:29)
[2021-02-27] MEDS ORDERED: LIDOCAINE HCL 1% 30ML VIAL (10MG/ML) ONE (15:24)
[2021-02-27] MEDS ORDERED: SKIN ADHESIVE 0.7 GM EA TOP ONE (15:25)
[2021-02-27] MEDS ORDERED: POLYMYXIN B SULFATE 500000 UNITS/VIAL ONE (15:25)
[2021-02-27] MEDS ORDERED: BUPIVACAINE HCL/PF 0.5% (5MG/ML) 10ML ONE (15:25)
[2021-02-27 16:00] VITALS: BP 134/58
[2021-02-27 20:00] VITALS: BP 127/40
[2021-02-27] MEDS: ATORVASTATIN CALCIUM 40MG TABLET PO SCH (21:53)
[2021-02-28] VITALS: BP 138/58
[2021-02-28 04:00] VITALS: BP 122/64
[2021-02-28] MEDS: BLOOD SUGAR DIAGNOSTIC STRIP TEST SCH ×4 (06:12→20:34)
[2021-02-28] MEDS: INSULIN LISPRO 100 UNITS/ML SUBCUT SCH ×4 (06:12→21:14)
[2021-02-28 08:00] VITALS: BP 150/60
[2021-02-28] MEDS: ISOSORBIDE MONONITRATE 30MG TABLET SR 24HR PO SCH (09:03)
[2021-02-28] MEDS: FUROSEMIDE 40MG TABLET PO SCH (09:03)
[2021-02-28] MEDS: FAMOTIDINE 20MG TABLET PO SCH (09:04)
[2021-02-28] MEDS: TAMSULOSIN HCL 0.4MG SR CAPSULE PO SCH (09:04)
[2021-02-28 12:00] VITALS: BP 130/52
[2021-02-28] MEDS: MEROPENEM 500MG in NORMAL SALINE 50ML IV SCH (13:47)
[2021-02-28 16:00] VITALS: BP 118/46
[2021-02-28 20:00] VITALS: BP 113/37
[2021-02-28] MEDS: EPOETIN ALFA-EPBX 10,000 UNIT/ML VIAL SUBCUT SCH (21:14)
[2021-02-28] MEDS: ATORVASTATIN CALCIUM 40MG TABLET PO SCH (21:14)
[2021-03-01] VITALS: BP 125/40
[2021-03-01 04:00] VITALS: BP 130/50
[2021-03-01] MEDS: INSULIN LISPRO 100 UNITS/ML SUBCUT SCH ×4 (06:29→21:00)
[2021-03-01] MEDS: BLOOD SUGAR DIAGNOSTIC STRIP TEST SCH ×4 (06:29→21:54)
[2021-03-01 06:39] LABS: CHLORIDE 106 mEq/L (98-107)
[2021-03-01 06:43] LABS: BASOPHILS % 0.5 % (0.0-2.0); EOSINOPHILS % 3.4 % (0.0-5.0); HEMATOCRIT. 30.3 % (42.0-52.0); LYMPHOCYTES % 30.1 % (20.0-50.0); MEAN CORPUSCULAR HEMOGLOBIN 32.1 pg (28.0-32.0); MEAN CORPUSCULAR VOLUME 96.9 fL (80.0-94.0); MEAN PLATELET VOLUME 7.2 fl (7.4-10.4); MONOCYTES % 6.8 % (2.0-8.0); NEUTROPHILS % 59.2 % (40.0-76.0); PLATELET 200 x1000/uL (130-400); RED BLOOD CELL COUNT 3.13 mill/uL (4.7-6.1); RED CELL DISTRIBUTION WIDTH 15.4 % (11.6-14.6)
[2021-03-01 06:52] LABS: CREATINE KINASE 93 IU/L (39-308); CREATINE KINASE MB FRACTION 2.9 ng/mL (0.5-3.6); LDL CHOLESTEROL 35 mg/dL (5-100)
[2021-03-01 06:53] LABS: HDL CHOLESTEROL 23 mg/dL (40-59)
[2021-03-01 08:00] VITALS: BP 159/67
[2021-03-01] MEDS: DEXT 5%/0.45% NACL 1000ML 1,000 ML IV SCH ×2 (10:15→22:51)
[2021-03-01 12:00] VITALS: BP 156/54
[2021-03-01] MEDS: MEROPENEM 500MG in NORMAL SALINE 50ML IV SCH (13:49)
[2021-03-01] MEDS: ASPIRIN 81MG EC TABLET PO SCH (15:50)
[2021-03-01 16:00] VITALS: BP 135/55
[2021-03-01] MEDS ORDERED: ASPIRIN 81MG TABLET PO NR (16:00)
[2021-03-01] MEDS: TAMSULOSIN HCL 0.4MG SR CAPSULE PO SCH (16:40)
[2021-03-01] MEDS: ISOSORBIDE MONONITRATE 30MG TABLET SR 24HR PO SCH (16:40)
[2021-03-01] MEDS: FAMOTIDINE 20MG TABLET PO SCH (16:40)
[2021-03-01] MEDS: FUROSEMIDE 40MG TABLET PO SCH (16:40)
[2021-03-01 20:00] VITALS: BP 124/45
[2021-03-01] MEDS: ATORVASTATIN CALCIUM 40MG TABLET PO SCH (21:54)
[2021-03-02] VITALS: BP 125/61
[2021-03-02 04:00] VITALS: BP 123/53
[2021-03-02 07:22] LABS: BASOPHILS % 0.5 % (0.0-2.0); EOSINOPHILS % 2.7 % (0.0-5.0); HEMATOCRIT. 27.6 % (42.0-52.0); LYMPHOCYTES % 29.1 % (20.0-50.0); MEAN CORPUSCULAR HEMOGLOBIN 31.5 pg (28.0-32.0); MEAN CORPUSCULAR VOLUME 96.3 fL (80.0-94.0); MEAN PLATELET VOLUME 7.2 fl (7.4-10.4); MONOCYTES % 6.5 % (2.0-8.0); NEUTROPHILS % 61.2 % (40.0-76.0); PLATELET 168 x1000/uL (130-400); RED BLOOD CELL COUNT 2.86 mill/uL (4.7-6.1); RED CELL DISTRIBUTION WIDTH 15.2 % (11.6-14.6)
[2021-03-02] MEDS: BLOOD SUGAR DIAGNOSTIC STRIP TEST SCH ×3 (07:40→20:41)
[2021-03-02] MEDS: INSULIN LISPRO 100 UNITS/ML SUBCUT SCH ×3 (07:40→21:00)
[2021-03-02 07:57] LABS: CHLORIDE 104 mEq/L (98-107)
[2021-03-02 08:00] VITALS: BP 144/47
[2021-03-02] MEDS: FUROSEMIDE 40MG TABLET PO SCH (09:00)
[2021-03-02] MEDS: ISOSORBIDE MONONITRATE 30MG TABLET SR 24HR PO SCH (09:00)
[2021-03-02] MEDS: TAMSULOSIN HCL 0.4MG SR CAPSULE PO SCH (09:00)
[2021-03-02] MEDS: ASPIRIN 81MG EC TABLET PO SCH (09:00)
[2021-03-02] MEDS: FAMOTIDINE 20MG TABLET PO SCH (09:00)
[2021-03-02 12:00] VITALS: BP 153/67
[2021-03-02] MEDS ORDERED: SKIN ADHESIVE 0.7 GM EA TOP ONE ×2 (12:04→12:05)
[2021-03-02] MEDS ORDERED: LIDOCAINE HCL 1% 10 MG/ML 10ML VIAL ONE ×2 (12:05→12:47)
[2021-03-02] MEDS ORDERED: POLYMYXIN B SULFATE 500000 UNITS/VIAL ONE (12:05)
[2021-03-02] MEDS ORDERED: BUPIVACAINE HCL/PF 0.5% (5MG/ML) 10ML ONE (12:05)
[2021-03-02] MEDS: DEXT 5%/0.45% NACL 1000ML 1,000 ML IV SCH (12:30)
[2021-03-02] MEDS ORDERED: INDOCYANINE GREEN 25 MG VIAL IV ONE (12:38)
[2021-03-02] MEDS ORDERED: NEOSTIGMINE METHYLSULFATE 1MG/ML 10 ML VIAL ONE (12:53)
[2021-03-02] MEDS ORDERED: GLYCOPYRROLATE 0.2 MG/ML 2ML VIAL ONE (12:53)
[2021-03-02] MEDS ORDERED: FENTANYL CITRATE/PF 50MCG/ML 2ML VIAL ONE (12:53)
[2021-03-02] MEDS ORDERED: PROPOFOL 200MG/20ML VIAL IV ONE (12:53)
[2021-03-02] MEDS ORDERED: MIDAZOLAM HCL 2 MG/2 ML VIAL ONE (12:53)
[2021-03-02] MEDS ORDERED: CEFAZOLIN SODIUM 1000MG/VIAL ONE (12:54)
[2021-03-02] MEDS ORDERED: SODIUM CHLORIDE 0.9% 10ML VIAL ONE (12:54)
[2021-03-02] MEDS ORDERED: ONDANSETRON HCL 4MG/2ML INJ ONE (12:54)
[2021-03-02] MEDS ORDERED: SUCCINYLCHOLINE CHLORIDE 200MG/10ML IV ONE (12:54)
[2021-03-02] MEDS ORDERED: PHENYLEPHRINE HCL 10 MG/ML 1ML (IV VIAL) IV ONE (12:54)
[2021-03-02] MEDS ORDERED: ROCURONIUM BROMIDE 10MG/ML VIAL 5ML IV ONE (13:00)
[2021-03-02] MEDS ORDERED: ETOMIDATE 2MG/ML 10ML VIAL IV ONE (13:03)
[2021-03-02] MEDS: PIPERACILLIN/TAZOBACTAM 3.375 G in DEXTROSE 5% WATER 50 ML IV SCH ×2 (15:00→20:39)
[2021-03-02] MEDS ORDERED: NALOXONE HCL 0.4MG/ML VIAL IV PRN (15:30)
[2021-03-02] MEDS ORDERED: SODIUM CHLORIDE 0.9% 1,000 ML IV ONE (15:30)
[2021-03-02] MEDS ORDERED: MEPERIDINE HCL/PF 25MG/ML CPJ IV PRN ×2 (15:30)
[2021-03-02] MEDS ORDERED: MORPHINE SULFATE 2 MG/ML CPJ (NOT FOR IM USE) IV PRN (15:30)
[2021-03-02] MEDS: HYDROMORPHONE HCL/PF 2MG/ML CPJ IV PRN ×3 (15:39→16:00)
[2021-03-02] MEDS: ONDANSETRON HCL 4MG/2ML INJ IV PRN ×2 (15:46→17:01)
[2021-03-02 20:00] VITALS: BP 153/67
[2021-03-02] MEDS: ATORVASTATIN CALCIUM 40MG TABLET PO SCH (20:39)
[2021-03-02 21:24] LABS: HEPATITIS B SURFACE ANTIGEN NEGATIVE
[2021-03-02] MEDS ORDERED: ONDANSETRON HCL 4MG/2ML INJ IV PRN (22:30)
[2021-03-02] MEDS: HYDROCODONE/ACETAMINOPHEN 5/325MG TABLET PO PRN (22:44)
[2021-03-03] VITALS: BP 144/63
[2021-03-03] MEDS: DEXT 5%/0.45% NACL 1000ML 1,000 ML IV SCH ×2 (02:43→15:41)
[2021-03-03 04:00] VITALS: BP 150/62
[2021-03-03] MEDS: HYDROCODONE/ACETAMINOPHEN 5/325MG TABLET PO PRN ×2 (04:52→17:42)
[2021-03-03] MEDS: BLOOD SUGAR DIAGNOSTIC STRIP TEST SCH ×4 (07:21→20:50)
[2021-03-03 08:00] VITALS: BP 133/57
[2021-03-03] MEDS: INSULIN LISPRO 100 UNITS/ML SUBCUT SCH ×4 (08:30→21:13)
[2021-03-03] MEDS: ASPIRIN 81MG EC TABLET PO SCH (08:31)
[2021-03-03] MEDS: FUROSEMIDE 40MG TABLET PO SCH (08:32)
[2021-03-03] MEDS: TAMSULOSIN HCL 0.4MG SR CAPSULE PO SCH (08:32)
[2021-03-03] MEDS: FAMOTIDINE 20MG TABLET PO SCH (08:34)
[2021-03-03] MEDS: ISOSORBIDE MONONITRATE 30MG TABLET SR 24HR PO SCH (08:35)
[2021-03-03 10:19] LABS: BASOPHILS % 0.9 % (0.0-2.0); EOSINOPHILS % 1.1 % (0.0-5.0); HEMATOCRIT. 29.5 % (42.0-52.0); HEMOGLOBIN. 9.9 g/dL (14.0-18.0); LYMPHOCYTES % 20.5 % (20.0-50.0); MEAN CORPUSCULAR HEMOGLOBIN 32.2 pg (28.0-32.0); MEAN CORPUSCULAR VOLUME 96.4 fL (80.0-94.0); MEAN PLATELET VOLUME 7.2 fl (7.4-10.4); NEUTROPHILS % 74.5 % (40.0-76.0); PLATELET 160 x1000/uL (130-400); RED BLOOD CELL COUNT 3.06 mill/uL (4.7-6.1)
[2021-03-03 10:26] LABS: CHLORIDE 107 mEq/L (98-107)
[2021-03-03 12:00] VITALS: BP 103/41
[2021-03-03] MEDS: PIPERACILLIN/TAZOBACTAM 3.375 G in DEXTROSE 5% WATER 50 ML IV SCH ×2 (12:17→20:50)
[2021-03-03] MEDS: CLOPIDOGREL 75MG TABLET PO SCH (12:17)
[2021-03-03 16:00] VITALS: BP 126/53
[2021-03-03 20:00] VITALS: BP 96/40
[2021-03-03] MEDS: ATORVASTATIN CALCIUM 40MG TABLET PO SCH (20:49)
[2021-03-03] MEDS: EPOETIN ALFA-EPBX 10,000 UNIT/ML VIAL SUBCUT SCH (20:50)
[2021-03-04] VITALS: BP_SYST 119; BP_SYST 96; BP_DIAS 40; BP_DIAS 61
[2021-03-04 04:00] VITALS: BP 122/52
[2021-03-04] MEDS: DEXT 5%/0.45% NACL 1000ML 1,000 ML IV SCH ×2 (05:30→18:52)
[2021-03-04] MEDS: HYDROCODONE/ACETAMINOPHEN 5/325MG TABLET PO PRN ×2 (05:31→09:48)
[2021-03-04] MEDS: BLOOD SUGAR DIAGNOSTIC STRIP TEST SCH ×4 (06:47→21:24)
[2021-03-04 08:00] VITALS: BP 113/48
[2021-03-04] MEDS: ISOSORBIDE MONONITRATE 30MG TABLET SR 24HR PO SCH (09:34)
[2021-03-04] MEDS: FAMOTIDINE 20MG TABLET PO SCH (09:34)
[2021-03-04] MEDS: FUROSEMIDE 40MG TABLET PO SCH (09:34)
[2021-03-04] MEDS: ASPIRIN 81MG EC TABLET PO SCH (09:35)
[2021-03-04] MEDS: TAMSULOSIN HCL 0.4MG SR CAPSULE PO SCH (09:35)
[2021-03-04] MEDS: CLOPIDOGREL 75MG TABLET PO SCH (09:35)
[2021-03-04] MEDS: PIPERACILLIN/TAZOBACTAM 3.375 G in DEXTROSE 5% WATER 50 ML IV SCH ×2 (09:35→21:23)
[2021-03-04] MEDS: INSULIN LISPRO 100 UNITS/ML SUBCUT SCH ×4 (09:36→21:35)
[2021-03-04] MEDS ORDERED: HYDR-4001 MT (11:55)
[2021-03-04 12:00] VITALS: BP 138/58
[2021-03-04 16:00] VITALS: BP 124/46
[2021-03-04] MEDS ORDERED: MORPHINE SULFATE 2 MG/ML CPJ (NOT FOR IM USE) IV PRN (16:00)
[2021-03-04] MEDS ORDERED: IPRATROPIUM/ALBUTEROL 0.5-3(2.5)MG/3ML NEB HHN SCH (18:00)
[2021-03-04 20:00] VITALS: BP 110/45
[2021-03-04] MEDS: ATORVASTATIN CALCIUM 40MG TABLET PO SCH (21:23)
[2021-03-04] MEDS ORDERED: LORAZEPAM 2MG/ML CPJ IM PRN (23:30)
[2021-03-05] VITALS: BP 129/51
[2021-03-05 04:00] VITALS: BP 121/50
[2021-03-05] MEDS: BLOOD SUGAR DIAGNOSTIC STRIP TEST SCH ×2 (06:36→13:11)
[2021-03-05] MEDS: DEXT 5%/0.45% NACL 1000ML 1,000 ML IV SCH (06:36)
[2021-03-05] MEDS: INSULIN LISPRO 100 UNITS/ML SUBCUT SCH ×2 (07:50→13:11)
[2021-03-05 08:00] VITALS: BP 134/59
[2021-03-05] MEDS: PIPERACILLIN/TAZOBACTAM 3.375 G in DEXTROSE 5% WATER 50 ML IV SCH (08:58)
[2021-03-05] MEDS: ASPIRIN 81MG EC TABLET PO SCH (08:59)
[2021-03-05] MEDS: ISOSORBIDE MONONITRATE 30MG TABLET SR 24HR PO SCH (08:59)
[2021-03-05] MEDS: FUROSEMIDE 40MG TABLET PO SCH (09:00)
[2021-03-05] MEDS: CLOPIDOGREL 75MG TABLET PO SCH (09:00)
[2021-03-05] MEDS: TAMSULOSIN HCL 0.4MG SR CAPSULE PO SCH (09:01)
[2021-03-05] MEDS: FAMOTIDINE 20MG TABLET PO SCH (09:01)
[2021-03-05 12:00] VITALS: BP 113/50
== END 2021-03-05 16:21 | disposition home or self-care (01) | DRG 907 ==
LOC: ER 19:37 → 6EST 21:51 → EDBEDREQTM 22:03 → EDBEDREQ 22:03 → ENRESERV 22:47
PROVIDERS: ADMIT Internal Medicine; ATTEND Internal Medicine
PROC: 5A1D70Z Performance of Urinary Filtration, Intermittent, Less than 6 Hours Per Day (ICD-10-PCS; 2021-02-26)
PROC: 5A1D70Z Performance of Urinary Filtration, Intermittent, Less than 6 Hours Per Day (ICD-10-PCS; 2021-02-28)
PROC: 0FT44ZZ Resection of Gallbladder, Percutaneous Endoscopic Approach (ICD-10-PCS; principal; 2021-03-02)
PROC: 8E0W4CZ Robotic Assisted Procedure of Trunk Region, Percutaneous Endoscopic Approach (ICD-10-PCS; 2021-03-02)
PROC: 5A1D70Z Performance of Urinary Filtration, Intermittent, Less than 6 Hours Per Day (ICD-10-PCS; 2021-03-03)
PROC: 5A1D70Z Performance of Urinary Filtration, Intermittent, Less than 6 Hours Per Day (ICD-10-PCS; 2021-03-05)
DX: T85.79XA Infection and inflammatory reaction due to other internal prosthetic devices, implants and grafts, initial encounter (principal); I50.33 Acute on chronic diastolic (congestive) heart failure; N18.6 End stage renal disease; I13.2 Hypertensive heart and chronic kidney disease with heart failure and with stage 5 chronic kidney disease, or end stage renal disease; G93.40 Encephalopathy, unspecified; N17.9 Acute kidney failure, unspecified; Z16.12 Extended spectrum beta lactamase (ESBL) resistance; K80.12 Calculus of gallbladder with acute and chronic cholecystitis without obstruction; E66.2 Morbid (severe) obesity with alveolar hypoventilation; E11.22 Type 2 diabetes mellitus with diabetic chronic kidney disease; F03.90 Unspecified dementia, unspecified severity, without behavioral disturbance, psychotic disturbance, mood disturbance, and anxiety; R74.01 Elevation of levels of liver transaminase levels; D64.9 Anemia, unspecified; E11.51 Type 2 diabetes mellitus with diabetic peripheral angiopathy without gangrene; M16.0 Bilateral primary osteoarthritis of hip; R16.1 Splenomegaly, not elsewhere classified; I25.10 Atherosclerotic heart disease of native coronary artery without angina pectoris; I44.0 Atrioventricular block, first degree; Y83.8 Other surgical procedures as the cause of abnormal reaction of the patient, or of later complication, without mention of misadventure at the time of the procedure; B96.20 Unspecified Escherichia coli [E. coli] as the cause of diseases classified elsewhere; E78.00 Pure hypercholesterolemia, unspecified; I70.0 Atherosclerosis of aorta; K66.0 Peritoneal adhesions (postprocedural) (postinfection); Z20.822 Contact with and (suspected) exposure to COVID-19; M48.061 Spinal stenosis, lumbar region without neurogenic claudication; Z99.2 Dependence on renal dialysis; Z79.84 Long term (current) use of oral hypoglycemic drugs; Z79.899 Other long term (current) drug therapy; Z79.82 Long term (current) use of aspirin; Z90.49 Acquired absence of other specified parts of digestive tract; Z82.49 Family history of ischemic heart disease and other diseases of the circulatory system; I25.2 Old myocardial infarction; Z95.5 Presence of coronary angioplasty implant and graft; Y92.89 Other specified places as the place of occurrence of the external cause; Z86.74 Personal history of sudden cardiac arrest; Z87.01 Personal history of pneumonia (recurrent); Z87.440 Personal history of urinary (tract) infections; E80.6 Other disorders of bilirubin metabolism; Z68.32 Body mass index [BMI] 32.0-32.9, adult
CPT/HCPCS: 36415; 71045; 74018; 74176; 74181; 76700; 80048; 80053; 80061; 80076; 82550; 82553; 82962; 83036; 83735; 83880; 84100; 84484; 85025; 85027; 86705; 86709; 86803; 86850; 86900; 87340; 87426; 88304; 93005; 93306; 97162; 99285; C9113; J0330; J0690; J0885; J1170; J1815; J2175; J2185; J2250; J2270; J2370; J2405; J2543; J2704; J2710; J3010; J3490; J7040; J7042; J7060; Q9957

== ENCOUNTER 2022-08-10 10:22 | Inpatient (IN) | payer MEDICARE ==
[~2022-08-10] VITALS: Ht 172.7 cm; Wt 107.6 kg
[2022-08-10] VITALS (12 sets, daily range): BP systolic 131–169; BP diastolic 56–88
[~2022-08-10 10:22] MED LIST changes: +ATOR40TA70 MT; +FOLI0.8T23 MT; +FURO40TA5 MT; +HYDR-4001 MT; -SULF-13 MT; +TAMS-11 PO
[2022-08-10 11:28] LABS: BASOPHILS % 0.9 % (0.0-2.0); HEMATOCRIT. 29.3 % (42.0-52.0); HEMOGLOBIN. 9.8 g/dL (14.0-18.0); MEAN CORPUSCULAR HEMOGLOBIN 32.3 pg (28.0-32.0); MEAN CORPUSCULAR VOLUME 96.9 fL (80.0-94.0); MEAN PLATELET VOLUME 8.1 fl (7.4-10.4); MONOCYTES % 5.7 % (2.0-8.0); NEUTROPHILS % 82.4 % (40.0-76.0); PLATELET 153 x1000/uL (130-400); RED BLOOD CELL COUNT 3.03 mill/uL (4.7-6.1); RED CELL DISTRIBUTION WIDTH 17.4 % (11.6-14.6)
[2022-08-10 11:44] LABS: CHLORIDE 106 mEq/L (98-107)
[2022-08-10] MEDS ORDERED: SODIUM BICARBONATE 8.4% 1 MEQ/ML 50ML SYR IV ONE (12:15)
[2022-08-10] MEDS ORDERED: CALCIUM GLUCONATE 1,000 MG in DEXT 5% WATER 100 ML IV ONE (12:15)
[2022-08-10] MEDS ORDERED: INSULIN REGULAR (HUMULIN R) 300UNITS/3ML VIAL IV ONE (12:15)
[2022-08-10] MEDS ORDERED: DEXTROSE 50% WATER 50ML SYRINGE IV ONE (12:15)
[2022-08-10] MEDS ORDERED: CALCIUM GLUCONATE 1GM PREMIX 50 ML IV NR (13:00)
[2022-08-10] MEDS ORDERED: ALBUTEROL (0.083%) 2.5MG/3ML NEB HHN ONE (13:15)
[2022-08-10] MEDS ORDERED: DOCUSATE SODIUM 100MG CAPSULE PO ONE (13:15)
[2022-08-10] MEDS ORDERED: VANCOMYCIN 1G PREMIX 200 ML IV ONE (14:30)
[2022-08-10] MEDS ORDERED: PIPERACILLIN/TAZ 3.375G PREMIX 50 ML IV ONE (14:30)
[2022-08-10 14:45] LABS: BG BASE EXCESS -6.6 mmol/L (-2.0-2.0); BG CARBOXYHEMOGLOBIN 1.2 % (0.5-1.5); BG DEOXYHEMOGLOBIN 8.8 % (0.0-5.0); BG FRACTION INSPIRED OXYGEN 40; BG HCO3 ACT 18.8 mmol/L (22.0-26.0); BG METHEMOGLOBIN 0.3 % (0.0-1.5); BG OXYGEN SATURATION 91.1 % (92.0-98.5); BG OXYHEMOGLOBIN 89.7 % (94.0-97.0); BG PCO2 37.3 mmHg (35.0-45.0); BG PH 7.321 (7.350-7.450); BG SAMPLE SITE LEFT BRACHIAL; BG TOTAL HEMOGLOBIN 10.5 g/dL (12.0-18.0); BG VENT MODE NASAL CANNULA
[2022-08-10 15:22] LABS: HEPATITIS B SURFACE ANTIGEN NEGATIVE
[2022-08-10] MEDS ORDERED: DOCUSATE SODIUM 100MG CAPSULE PO PRN (15:30)
[2022-08-10] MEDS ORDERED: ASPIRIN 81MG TABLET PO NR (15:30)
[2022-08-10] MEDS ORDERED: ONDANSETRON HCL 4MG/2ML INJ IV PRN (15:30)
[2022-08-10] MEDS ORDERED: IPRATROPIUM/ALBUTEROL 0.5-3(2.5)MG/3ML NEB HHN PRN (15:30)
[2022-08-10] MEDS ORDERED: CLONIDINE 0.1MG TABLET PO PRN (15:30)
[2022-08-10] MEDS ORDERED: HYDROCODONE/ACETAMINOPHEN 5/325MG TABLET PO PRN (15:30)
[2022-08-10] MEDS ORDERED: NALOXONE HCL 0.4MG/ML VIAL IV PRN (15:30)
[2022-08-10] MEDS ORDERED: DEXTROSE 50% WATER 50ML SYRINGE IV PRN (16:15)
[2022-08-10] MEDS: BLOOD SUGAR DIAGNOSTIC STRIP TEST SCH ×3 (17:00→21:30)
[2022-08-10] MEDS: ENOXAPARIN 40MG/0.4ML SYR SUBCUT SCH (18:38)
[2022-08-10] MEDS: INSULIN LISPRO 100 UNITS/ML SUBCUT SCH ×2 (18:42→21:00)
[2022-08-10] MEDS ORDERED: INFLUENZA VACCINE 05/PF 0.5 ML SYRINGE IM ONE (22:15)
[2022-08-10] MEDS ORDERED: PNEUMOCOCCAL 23-VAL P-SAC VAC 0.5 ML IM ONE (22:15)
[2022-08-10 23:37] LABS: CREATINE KINASE MB FRACTION 3.6 ng/mL (0.5-3.6)
[2022-08-11] VITALS (21 sets, daily range): BP systolic 88–148; BP diastolic 43–78
[2022-08-11 06:38] LABS: CREATINE KINASE MB FRACTION 3.3 ng/mL (0.5-3.6)
[2022-08-11 07:37] LABS: BASOPHILS % 0.3 % (0.0-2.0); EOSINOPHILS % 2.4 % (0.0-5.0); HEMATOCRIT. 25.8 % (42.0-52.0); HEMOGLOBIN. 8.8 g/dL (14.0-18.0); LYMPHOCYTES % 21.8 % (20.0-50.0); MEAN CORPUSCULAR HEMOGLOBIN 32.5 pg (28.0-32.0); MEAN CORPUSCULAR VOLUME 95.5 fL (80.0-94.0); MEAN PLATELET VOLUME 8.1 fl (7.4-10.4); MONOCYTES % 4.4 % (2.0-8.0); NEUTROPHILS % 71.1 % (40.0-76.0); PLATELET 141 x1000/uL (130-400); RED CELL DISTRIBUTION WIDTH 16.9 % (11.6-14.6)
[2022-08-11] MEDS: INSULIN LISPRO 100 UNITS/ML SUBCUT SCH ×4 (08:00→20:46)
[2022-08-11] MEDS: BLOOD SUGAR DIAGNOSTIC STRIP TEST SCH ×4 (08:06→20:45)
[2022-08-11] MEDS ORDERED: VANCOMYCIN 1G PREMIX 200 ML IV NR (10:00)
[2022-08-11] MEDS ORDERED: INFLUENZA VACCINE 05/PF 0.5 ML SYRINGE IM ONE (11:00)
[2022-08-11] MEDS ORDERED: PNEUMOCOCCAL 23-VAL P-SAC VAC 0.5 ML IM ONE (11:00)
[2022-08-11] MEDS: PIPERACILLIN/TAZOBACTAM 3.375 G in DEXTROSE 5% WATER 50 ML IV SCH ×2 (11:43→20:48)
[2022-08-11 12:39] LABS: BG BASE EXCESS 1.8 mmol/L (-2.0-2.0); BG CARBOXYHEMOGLOBIN 0.3 % (0.5-1.5); BG DEOXYHEMOGLOBIN 16.9 % (0.0-5.0); BG FRACTION INSPIRED OXYGEN 21; BG HCO3 ACT 27.5 mmol/L (22.0-26.0); BG METHEMOGLOBIN 0.2 % (0.0-1.5); BG OXYHEMOGLOBIN 82.6 % (94.0-97.0); BG PCO2 48.7 mmHg (35.0-45.0); BG PO2 49.5 mmHg (75.0-100.0); BG SAMPLE SITE LEFT RADIAL; BG TOTAL HEMOGLOBIN 9.7 g/dL (12.0-18.0); BG VENT MODE ROOM AIR
[2022-08-11] MEDS: ENOXAPARIN 40MG/0.4ML SYR SUBCUT SCH (17:59)
[2022-08-11] MEDS: EPOETIN ALFA-EPBX 4,000 UNIT/ML VIAL SUBCUT SCH (20:47)
[2022-08-11] MEDS ORDERED: IOHEXOL-350 100 ML BOTTLE ONE (23:14)
[2022-08-12] VITALS (9 sets, daily range): BP systolic 121–158; BP diastolic 36–77
[2022-08-12 07:44] LABS: BASOPHILS % 0.3 % (0.0-2.0); EOSINOPHILS % 4.8 % (0.0-5.0); HEMATOCRIT. 26.5 % (42.0-52.0); HEMOGLOBIN. 8.9 g/dL (14.0-18.0); LYMPHOCYTES % 19.2 % (20.0-50.0); MEAN CORPUSCULAR HEMOGLOBIN 32.4 pg (28.0-32.0); MEAN CORPUSCULAR VOLUME 96.4 fL (80.0-94.0); MEAN PLATELET VOLUME 7.9 fl (7.4-10.4); MONOCYTES % 4.6 % (2.0-8.0); NEUTROPHILS % 71.1 % (40.0-76.0); PLATELET 152 x1000/uL (130-400); RED BLOOD CELL COUNT 2.75 mill/uL (4.7-6.1)
[2022-08-12] MEDS: INSULIN LISPRO 100 UNITS/ML SUBCUT SCH ×4 (08:00→21:48)
[2022-08-12] MEDS: BLOOD SUGAR DIAGNOSTIC STRIP TEST SCH ×4 (08:10→21:30)
[2022-08-12] MEDS: PIPERACILLIN/TAZOBACTAM 3.375 G in DEXTROSE 5% WATER 50 ML IV SCH ×2 (08:50→21:38)
[2022-08-12] MEDS: ENOXAPARIN 40MG/0.4ML SYR SUBCUT SCH (18:00)
[2022-08-12] MEDS: ATORVASTATIN CALCIUM 40MG TABLET PO SCH (21:30)
[2022-08-13] VITALS (21 sets, daily range): BP systolic 118–144; BP diastolic 35–71
[2022-08-13 06:39] LABS: BASOPHILS % 0.3 % (0.0-2.0); EOSINOPHILS % 6.3 % (0.0-5.0); HEMATOCRIT. 26.9 % (42.0-52.0); LYMPHOCYTES % 19.4 % (20.0-50.0); MEAN CORPUSCULAR VOLUME 95.9 fL (80.0-94.0); MEAN PLATELET VOLUME 7.7 fl (7.4-10.4); MONOCYTES % 4.7 % (2.0-8.0); NEUTROPHILS % 69.3 % (40.0-76.0); PLATELET 164 x1000/uL (130-400); RED CELL DISTRIBUTION WIDTH 16.9 % (11.6-14.6)
[2022-08-13] MEDS: BLOOD SUGAR DIAGNOSTIC STRIP TEST SCH ×4 (08:19→20:51)
[2022-08-13] MEDS: ASPIRIN 81MG TABLET PO SCH (08:35)
[2022-08-13] MEDS: INSULIN LISPRO 100 UNITS/ML SUBCUT SCH ×4 (08:36→21:22)
[2022-08-13] MEDS: PIPERACILLIN/TAZOBACTAM 3.375 G in DEXTROSE 5% WATER 50 ML IV SCH ×2 (10:05→21:20)
[2022-08-13] MEDS ORDERED: VANCOMYCIN 1G PREMIX 200 ML IV NR (18:00)
[2022-08-13] MEDS: ENOXAPARIN 40MG/0.4ML SYR SUBCUT SCH (18:35)
[2022-08-13] MEDS: ATORVASTATIN CALCIUM 40MG TABLET PO SCH (21:20)
[2022-08-13] MEDS: EPOETIN ALFA-EPBX 4,000 UNIT/ML VIAL SUBCUT SCH (21:21)
[2022-08-14] VITALS (13 sets, daily range): BP systolic 91–138; BP diastolic 44–68
[2022-08-14] MEDS: BLOOD SUGAR DIAGNOSTIC STRIP TEST SCH ×4 (07:30→21:00)
[2022-08-14] MEDS: INSULIN LISPRO 100 UNITS/ML SUBCUT SCH ×4 (08:00→21:49)
[2022-08-14] MEDS: PIPERACILLIN/TAZOBACTAM 3.375 G in DEXTROSE 5% WATER 50 ML IV SCH ×2 (09:04→21:48)
[2022-08-14] MEDS: ASPIRIN 81MG TABLET PO SCH (09:04)
[2022-08-14] MEDS: OMEPRAZOLE 20MG CAPSULE EXTENDED RELEASE PO SCH (13:26)
[2022-08-14] MEDS: ENOXAPARIN 40MG/0.4ML SYR SUBCUT SCH (17:31)
[2022-08-14] MEDS: ATORVASTATIN CALCIUM 40MG TABLET PO SCH (21:48)
[2022-08-15] VITALS: BP 97/52
[2022-08-15 04:00] VITALS: BP 113/41
[2022-08-15] MEDS: OMEPRAZOLE 20MG CAPSULE EXTENDED RELEASE PO SCH (06:33)
[2022-08-15] MEDS: BLOOD SUGAR DIAGNOSTIC STRIP TEST SCH ×4 (06:40→21:32)
[2022-08-15] MEDS: INSULIN LISPRO 100 UNITS/ML SUBCUT SCH ×4 (07:19→21:51)
[2022-08-15 08:00] VITALS: BP 97/49
[2022-08-15] MEDS: PIPERACILLIN/TAZOBACTAM 3.375 G in DEXTROSE 5% WATER 50 ML IV SCH ×2 (09:00→21:32)
[2022-08-15] MEDS: ASPIRIN 81MG TABLET PO SCH (13:41)
[2022-08-15 14:43] LABS: BASOPHILS % 0.8 % (0.0-2.0); EOSINOPHILS % 5.3 % (0.0-5.0); HEMATOCRIT. 24.9 % (42.0-52.0); HEMOGLOBIN. 8.4 g/dL (14.0-18.0); LYMPHOCYTES % 23.4 % (20.0-50.0); MEAN CORPUSCULAR HEMOGLOBIN 32.5 pg (28.0-32.0); MEAN CORPUSCULAR VOLUME 96.4 fL (80.0-94.0); MEAN PLATELET VOLUME 7.7 fl (7.4-10.4); MONOCYTES % 5.9 % (2.0-8.0); NEUTROPHILS % 64.6 % (40.0-76.0); PLATELET 166 x1000/uL (130-400); RED BLOOD CELL COUNT 2.58 mill/uL (4.7-6.1); RED CELL DISTRIBUTION WIDTH 16.5 % (11.6-14.6)
[2022-08-15] MEDS: MIDODRINE HCL 5MG TABLET PO SCH ×2 (14:46→18:27)
[2022-08-15 16:00] VITALS: BP 102/64
[2022-08-15] MEDS ORDERED: MIDODRINE HCL 5MG TABLET PO SCH (17:00)
[2022-08-15 20:00] VITALS: BP 93/55
[2022-08-15 20:22] LABS: BASOPHILS % 0.4 % (0.0-2.0); EOSINOPHILS % 5.3 % (0.0-5.0); HEMATOCRIT. 26.1 % (42.0-52.0); HEMOGLOBIN. 8.8 g/dL (14.0-18.0); LYMPHOCYTES % 17.6 % (20.0-50.0); MEAN CORPUSCULAR HEMOGLOBIN 32.5 pg (28.0-32.0); MEAN CORPUSCULAR VOLUME 96.1 fL (80.0-94.0); MEAN PLATELET VOLUME 7.3 fl (7.4-10.4); MONOCYTES % 5.6 % (2.0-8.0); NEUTROPHILS % 71.1 % (40.0-76.0); PLATELET 167 x1000/uL (130-400); RED BLOOD CELL COUNT 2.72 mill/uL (4.7-6.1); RED CELL DISTRIBUTION WIDTH 16.3 % (11.6-14.6)
[2022-08-15] MEDS: SUCRALFATE 1 G/10 ML UDC PO SCH (21:32)
[2022-08-15] MEDS: ATORVASTATIN CALCIUM 40MG TABLET PO SCH (21:32)
[2022-08-16] VITALS (9 sets, daily range): BP systolic 90–140; BP diastolic 29–65
[2022-08-16] MEDS: BLOOD SUGAR DIAGNOSTIC STRIP TEST SCH ×4 (05:43→21:50)
[2022-08-16 06:02] LABS: INR 1.1; PROTHROMBIN TIME 11.7 sec (9.6-11.0)
[2022-08-16 06:37] LABS: FERRITIN 646 ng/mL (22-322)
[2022-08-16 06:54] LABS: VITAMIN B12 SERUM 741 pg/mL (211-911)
[2022-08-16] MEDS: INSULIN LISPRO 100 UNITS/ML SUBCUT SCH ×4 (07:10→21:52)
[2022-08-16] MEDS: ASPIRIN 81MG TABLET PO SCH (10:03)
[2022-08-16] MEDS: OMEPRAZOLE 20MG CAPSULE EXTENDED RELEASE PO SCH (10:03)
[2022-08-16] MEDS: MIDODRINE HCL 5MG TABLET PO SCH ×3 (10:03→17:23)
[2022-08-16] MEDS: SUCRALFATE 1 G/10 ML UDC PO SCH ×3 (11:44→21:49)
[2022-08-16] MEDS ORDERED: SODIUM CHLORIDE 0.9% 250 ML IV ONE (12:00)
[2022-08-16] MEDS ORDERED: VANCOMYCIN 500MG PREMIX 100 ML IV SCH (14:00)
[2022-08-16] MEDS: ACETAMINOPHEN 325MG TABLET PO PRN (18:53)
[2022-08-16] MEDS: EPOETIN ALFA-EPBX 4,000 UNIT/ML VIAL SUBCUT SCH (21:49)
[2022-08-16] MEDS: ATORVASTATIN CALCIUM 40MG TABLET PO SCH (21:49)
[2022-08-17] VITALS: BP 141/76
[2022-08-17 00:12] LABS: BASOPHILS % 0.5 % (0.0-2.0); EOSINOPHILS % 4.6 % (0.0-5.0); HEMATOCRIT. 25.3 % (42.0-52.0); HEMOGLOBIN. 8.6 g/dL (14.0-18.0); LYMPHOCYTES % 16.3 % (20.0-50.0); MEAN CORPUSCULAR HEMOGLOBIN 32.2 pg (28.0-32.0); MEAN CORPUSCULAR VOLUME 95.3 fL (80.0-94.0); MEAN PLATELET VOLUME 7.2 fl (7.4-10.4); MONOCYTES % 4.9 % (2.0-8.0); NEUTROPHILS % 73.7 % (40.0-76.0); PLATELET 197 x1000/uL (130-400); RED BLOOD CELL COUNT 2.66 mill/uL (4.7-6.1); RED CELL DISTRIBUTION WIDTH 16.4 % (11.6-14.6)
[2022-08-17 04:00] VITALS: BP 151/53
[2022-08-17] MEDS: SUCRALFATE 1 G/10 ML UDC PO SCH ×4 (06:39→20:57)
[2022-08-17] MEDS: OMEPRAZOLE 20MG CAPSULE EXTENDED RELEASE PO SCH (06:39)
[2022-08-17] MEDS: INSULIN LISPRO 100 UNITS/ML SUBCUT SCH ×4 (06:39→21:32)
[2022-08-17] MEDS: BLOOD SUGAR DIAGNOSTIC STRIP TEST SCH ×4 (07:08→20:40)
[2022-08-17 08:00] VITALS: BP 156/62
[2022-08-17] MEDS: MIDODRINE HCL 5MG TABLET PO SCH ×3 (09:00→17:24)
[2022-08-17 12:00] VITALS: BP 141/48
[2022-08-17] MEDS ORDERED: IODIXANOL 320MG/ML 100 ML BOTTLE IV ONE ×2 (12:23→14:34)
[2022-08-17] MEDS ORDERED: HEPARIN 1000 UNITS/ML 10ML ONE ×2 (12:23→14:26)
[2022-08-17] MEDS ORDERED: LIDOCAINE HCL 1% 20ML VIAL (Pyxis) INJ ONE (12:26)
[2022-08-17] MEDS ORDERED: FENTANYL CITRATE/PF 50MCG/ML 2ML VIAL ONE (13:02)
[2022-08-17] MEDS ORDERED: MIDAZOLAM HCL 2 MG/2 ML VIAL ONE (13:02)
[2022-08-17] MEDS ORDERED: LABETALOL HCL 5MG/ML VIAL 20ML IV ONE (13:33)
[2022-08-17] MEDS ORDERED: CLOPIDOGREL 75MG TABLET ONE ×2 (13:48→13:49)
[2022-08-17] MEDS ORDERED: ATROPINE SULFATE 1MG/10ML SYR IV PRN (15:00)
[2022-08-17] MEDS ORDERED: ACETAMINOPHEN 325MG TABLET PO PRN (15:00)
[2022-08-17 16:00] VITALS: BP 136/57
[2022-08-17 19:41] VITALS: BP 121/46
[2022-08-17] MEDS: ATORVASTATIN CALCIUM 40MG TABLET PO SCH (20:57)
[2022-08-18] VITALS (15 sets, daily range): BP systolic 104–143; BP diastolic 35–64
[2022-08-18 05:36] LABS: BASOPHILS % 0.5 % (0.0-2.0); EOSINOPHILS % 4.1 % (0.0-5.0); HEMOGLOBIN. 8.6 g/dL (14.0-18.0); LYMPHOCYTES % 20.6 % (20.0-50.0); MEAN CORPUSCULAR HEMOGLOBIN 32.1 pg (28.0-32.0); MEAN CORPUSCULAR VOLUME 96.5 fL (80.0-94.0); MEAN PLATELET VOLUME 7.1 fl (7.4-10.4); MONOCYTES % 7.2 % (2.0-8.0); NEUTROPHILS % 67.6 % (40.0-76.0); PLATELET 196 x1000/uL (130-400); RED BLOOD CELL COUNT 2.69 mill/uL (4.7-6.1); RED CELL DISTRIBUTION WIDTH 16.8 % (11.6-14.6)
[2022-08-18 05:48] LABS: INR 1.1; PROTHROMBIN TIME 11.8 sec (9.6-11.0)
[2022-08-18] MEDS: SUCRALFATE 1 G/10 ML UDC PO SCH ×4 (06:38→21:28)
[2022-08-18] MEDS: BLOOD SUGAR DIAGNOSTIC STRIP TEST SCH ×4 (06:38→20:54)
[2022-08-18] MEDS: OMEPRAZOLE 20MG CAPSULE EXTENDED RELEASE PO SCH (06:38)
[2022-08-18] MEDS: INSULIN LISPRO 100 UNITS/ML SUBCUT SCH ×4 (08:05→21:29)
[2022-08-18] MEDS ORDERED: PROPOFOL 200MG/20ML VIAL IV ONE (12:23)
[2022-08-18] MEDS: MIDODRINE HCL 5MG TABLET PO SCH ×3 (13:00→19:00)
[2022-08-18] MEDS ORDERED: CEFTRIAXONE 1GM PREMIX 50 ML IV SCH (14:15)
[2022-08-18] MEDS ORDERED: LIDOCAINE HCL 1% 10 MG/ML 10ML VIAL ONE (14:19)
[2022-08-18] MEDS ORDERED: BUPIVACAINE HCL/PF 0.5% (5MG/ML) 10ML ONE (14:19)
[2022-08-18] MEDS ORDERED: POLYMYXIN B SULFATE 500000 UNITS/VIAL ONE (14:20)
[2022-08-18] MEDS ORDERED: PHENYLEPHRINE HCL 10 MG/ML 1ML (IV VIAL) IV ONE (14:31)
[2022-08-18] MEDS ORDERED: CEFTRIAXONE 2 G in DEXT 5% WATER 100 ML IV SCH (15:00)
[2022-08-18] MEDS ORDERED: FENTANYL CITRATE/PF 50MCG/ML 2ML VIAL IV PRN (16:00)
[2022-08-18] MEDS: CLOPIDOGREL 75MG TABLET PO SCH (19:00)
[2022-08-18] MEDS: ATORVASTATIN CALCIUM 40MG TABLET PO SCH (21:28)
[2022-08-18] MEDS: ACETAMINOPHEN 325MG TABLET PO PRN (23:43)
[2022-08-19] VITALS: BP 124/73
[2022-08-19 04:00] VITALS: BP 126/47
[2022-08-19] MEDS: BLOOD SUGAR DIAGNOSTIC STRIP TEST SCH ×4 (06:29→20:44)
[2022-08-19] MEDS: OMEPRAZOLE 20MG CAPSULE EXTENDED RELEASE PO SCH (06:42)
[2022-08-19] MEDS: SUCRALFATE 1 G/10 ML UDC PO SCH ×4 (06:42→21:10)
[2022-08-19 07:59] LABS: INR 1.1; PROTHROMBIN TIME 12.1 sec (9.6-11.0)
[2022-08-19 08:00] VITALS: BP 121/82
[2022-08-19 08:06] LABS: BASOPHILS % 0.3 % (0.0-2.0); EOSINOPHILS % 3.6 % (0.0-5.0); HEMATOCRIT. 24.6 % (42.0-52.0); HEMOGLOBIN. 8.4 g/dL (14.0-18.0); LYMPHOCYTES % 17.8 % (20.0-50.0); MEAN CORPUSCULAR HEMOGLOBIN 32.5 pg (28.0-32.0); MEAN CORPUSCULAR VOLUME 95.8 fL (80.0-94.0); MEAN PLATELET VOLUME 7.2 fl (7.4-10.4); MONOCYTES % 6.7 % (2.0-8.0); NEUTROPHILS % 71.6 % (40.0-76.0); PLATELET 188 x1000/uL (130-400); RED BLOOD CELL COUNT 2.57 mill/uL (4.7-6.1)
[2022-08-19] MEDS: INSULIN LISPRO 100 UNITS/ML SUBCUT SCH ×4 (08:38→21:12)
[2022-08-19] MEDS: CLOPIDOGREL 75MG TABLET PO SCH (10:30)
[2022-08-19] MEDS: MIDODRINE HCL 5MG TABLET PO SCH ×3 (10:31→17:28)
[2022-08-19 12:00] VITALS: BP 100/68
[2022-08-19 14:06] LABS: BG BASE EXCESS -0.1 mmol/L (-2.0-2.0); BG CARBOXYHEMOGLOBIN 0.6 % (0.5-1.5); BG DEOXYHEMOGLOBIN 18.9 % (0.0-5.0); BG FRACTION INSPIRED OXYGEN 21; BG HCO3 ACT 24.6 mmol/L (22.0-26.0); BG METHEMOGLOBIN 0.3 % (0.0-1.5); BG OXYGEN SATURATION 80.9 % (92.0-98.5); BG OXYHEMOGLOBIN 80.2 % (94.0-97.0); BG PCO2 40.2 mmHg (35.0-45.0); BG PH 7.405 (7.350-7.450); BG PO2 46.1 mmHg (75.0-100.0); BG SAMPLE SITE RIGHT RADIAL; BG TOTAL HEMOGLOBIN 9.9 g/dL (12.0-18.0); BG VENT MODE ROOM AIR
[2022-08-19 16:00] VITALS: BP 129/50
[2022-08-19] MEDS: ACETAMINOPHEN 325MG TABLET PO PRN (17:19)
[2022-08-19 20:00] VITALS: BP 124/81
[2022-08-19] MEDS: HYDROCODONE/ACETAMINOPHEN 5/325MG TABLET PO PRN (21:11)
[2022-08-19] MEDS: ATORVASTATIN CALCIUM 40MG TABLET PO SCH (21:11)
[2022-08-20] VITALS (16 sets, daily range): BP systolic 111–150; BP diastolic 40–105
[2022-08-20] MEDS: BLOOD SUGAR DIAGNOSTIC STRIP TEST SCH ×4 (06:37→20:55)
[2022-08-20] MEDS: SUCRALFATE 1 G/10 ML UDC PO SCH ×4 (06:41→20:34)
[2022-08-20] MEDS: OMEPRAZOLE 20MG CAPSULE EXTENDED RELEASE PO SCH (06:41)
[2022-08-20] MEDS: HYDROCODONE/ACETAMINOPHEN 5/325MG TABLET PO PRN ×2 (06:47→19:12)
[2022-08-20] MEDS: CLOPIDOGREL 75MG TABLET PO SCH (08:16)
[2022-08-20] MEDS: MIDODRINE HCL 5MG TABLET PO SCH ×3 (08:16→17:09)
[2022-08-20] MEDS: INSULIN LISPRO 100 UNITS/ML SUBCUT SCH ×4 (08:17→20:55)
[2022-08-20 09:56] LABS: BASOPHILS % 0.5 % (0.0-2.0); EOSINOPHILS % 3.4 % (0.0-5.0); HEMATOCRIT. 23.4 % (42.0-52.0); HEMOGLOBIN. 7.9 g/dL (14.0-18.0); LYMPHOCYTES % 26.6 % (20.0-50.0); MEAN CORPUSCULAR HEMOGLOBIN 32.7 pg (28.0-32.0); MEAN CORPUSCULAR VOLUME 96.7 fL (80.0-94.0); MONOCYTES % 4.7 % (2.0-8.0); NEUTROPHILS % 64.8 % (40.0-76.0); PLATELET 164 x1000/uL (130-400); RED BLOOD CELL COUNT 2.41 mill/uL (4.7-6.1)
[2022-08-20] MEDS: CEFTRIAXONE 1,000 MG in DEXTROSE 5% WATER 50 ML IV SCH ×2 (15:00→17:11)
[2022-08-20] MEDS: ATORVASTATIN CALCIUM 40MG TABLET PO SCH (20:34)
[2022-08-20] MEDS ORDERED: EPOETIN ALFA-EPBX 4,000 UNIT/ML VIAL SUBCUT SCH (21:00)
[2022-08-21] VITALS: BP 158/67
[2022-08-21 04:00] VITALS: BP 150/70
[2022-08-21] MEDS: INSULIN LISPRO 100 UNITS/ML SUBCUT SCH ×4 (06:07→21:10)
[2022-08-21] MEDS: OMEPRAZOLE 20MG CAPSULE EXTENDED RELEASE PO SCH (06:07)
[2022-08-21] MEDS: BLOOD SUGAR DIAGNOSTIC STRIP TEST SCH ×4 (06:07→21:00)
[2022-08-21] MEDS: SUCRALFATE 1 G/10 ML UDC PO SCH ×4 (06:07→21:09)
[2022-08-21] MEDS: CLOPIDOGREL 75MG TABLET PO SCH (08:08)
[2022-08-21] MEDS: MIDODRINE HCL 5MG TABLET PO SCH ×3 (08:08→17:00)
[2022-08-21] MEDS: ASPIRIN 81MG TABLET PO SCH (08:08)
[2022-08-21] MEDS: HYDROCODONE/ACETAMINOPHEN 5/325MG TABLET PO PRN (08:10)
[2022-08-21 12:00] VITALS: BP 120/41
[2022-08-21] MEDS: CEFTRIAXONE 1,000 MG in DEXTROSE 5% WATER 50 ML IV SCH (15:47)
[2022-08-21 20:00] VITALS: BP 138/62
[2022-08-21] MEDS: ATORVASTATIN CALCIUM 40MG TABLET PO SCH (21:09)
[2022-08-22] VITALS (7 sets, daily range): BP systolic 106–134; BP diastolic 48–63
[2022-08-22] MEDS: SUCRALFATE 1 G/10 ML UDC PO SCH ×4 (06:48→20:49)
[2022-08-22] MEDS: OMEPRAZOLE 20MG CAPSULE EXTENDED RELEASE PO SCH (06:48)
[2022-08-22] MEDS: BLOOD SUGAR DIAGNOSTIC STRIP TEST SCH ×4 (06:48→20:50)
[2022-08-22] MEDS: CLOPIDOGREL 75MG TABLET PO SCH (08:50)
[2022-08-22] MEDS: ASPIRIN 81MG TABLET PO SCH (08:50)
[2022-08-22] MEDS: MIDODRINE HCL 5MG TABLET PO SCH ×3 (08:51→16:42)
[2022-08-22] MEDS: INSULIN LISPRO 100 UNITS/ML SUBCUT SCH ×4 (08:51→20:50)
[2022-08-22] MEDS ORDERED: NALOXONE HCL 0.4MG/ML VIAL IV PRN (10:30)
[2022-08-22] MEDS: CEFTRIAXONE 1,000 MG in DEXTROSE 5% WATER 50 ML IV SCH (14:44)
[2022-08-22] MEDS: ATORVASTATIN CALCIUM 40MG TABLET PO SCH (20:49)
[2022-08-23] VITALS (8 sets, daily range): BP systolic 125–144; BP diastolic 41–78
[2022-08-23] MEDS: OMEPRAZOLE 20MG CAPSULE EXTENDED RELEASE PO SCH (06:19)
[2022-08-23] MEDS: SUCRALFATE 1 G/10 ML UDC PO SCH ×2 (06:19→12:42)
[2022-08-23] MEDS: BLOOD SUGAR DIAGNOSTIC STRIP TEST SCH ×2 (06:28→12:42)
[2022-08-23] MEDS: INSULIN LISPRO 100 UNITS/ML SUBCUT SCH ×2 (07:20→12:43)
[2022-08-23] MEDS: MIDODRINE HCL 5MG TABLET PO SCH ×2 (09:00→12:44)
[2022-08-23] MEDS: CLOPIDOGREL 75MG TABLET PO SCH (09:26)
[2022-08-23] MEDS: ASPIRIN 81MG TABLET PO SCH (09:26)
[2022-08-23] MEDS ORDERED: EPOETIN ALFA-EPBX 4,000 UNIT/ML VIAL SUBCUT SCH (21:00)
== END 2022-08-23 18:13 | disposition home health service (06) | DRG 252 ==
LOC: ER 10:22 → 5EST 13:10 → 7EST 08-14 12:30 → 3WST 08-17 15:30
PROVIDERS: ADMIT Internal Medicine; ATTEND Internal Medicine
PROC: 5A1D70Z Performance of Urinary Filtration, Intermittent, Less than 6 Hours Per Day (ICD-10-PCS; 2022-08-10)
PROC: 5A1D70Z Performance of Urinary Filtration, Intermittent, Less than 6 Hours Per Day (ICD-10-PCS; 2022-08-11)
PROC: 5A1D70Z Performance of Urinary Filtration, Intermittent, Less than 6 Hours Per Day (ICD-10-PCS; 2022-08-13)
PROC: 5A1D70Z Performance of Urinary Filtration, Intermittent, Less than 6 Hours Per Day (ICD-10-PCS; 2022-08-16)
PROC: 047M3Z1 Dilation of Right Popliteal Artery using Drug-Coated Balloon, Percutaneous Approach (ICD-10-PCS; principal; 2022-08-17)
PROC: 047P3ZZ Dilation of Right Anterior Tibial Artery, Percutaneous Approach (ICD-10-PCS; 2022-08-17)
PROC: B4101ZZ Fluoroscopy of Abdominal Aorta using Low Osmolar Contrast (ICD-10-PCS; 2022-08-17)
PROC: B41F1ZZ Fluoroscopy of Right Lower Extremity Arteries using Low Osmolar Contrast (ICD-10-PCS; 2022-08-17)
PROC: B41G1ZZ Fluoroscopy of Left Lower Extremity Arteries using Low Osmolar Contrast (ICD-10-PCS; 2022-08-17)
PROC: 0Y6X0Z1 Detachment at Right 5th Toe, High, Open Approach (ICD-10-PCS; 2022-08-18)
PROC: 0Y6R0Z1 Detachment at Right 2nd Toe, High, Open Approach (ICD-10-PCS; 2022-08-18)
PROC: 5A1D70Z Performance of Urinary Filtration, Intermittent, Less than 6 Hours Per Day (ICD-10-PCS; 2022-08-18)
PROC: 5A1D70Z Performance of Urinary Filtration, Intermittent, Less than 6 Hours Per Day (ICD-10-PCS; 2022-08-20)
DX: E11.52 Type 2 diabetes mellitus with diabetic peripheral angiopathy with gangrene (principal); I21.A1 Myocardial infarction type 2; N18.6 End stage renal disease; I44.2 Atrioventricular block, complete; I13.2 Hypertensive heart and chronic kidney disease with heart failure and with stage 5 chronic kidney disease, or end stage renal disease; E87.20 Acidosis, unspecified; M86.9 Osteomyelitis, unspecified; K76.6 Portal hypertension; M86.171 Other acute osteomyelitis, right ankle and foot; I50.32 Chronic diastolic (congestive) heart failure; E87.5 Hyperkalemia; E11.22 Type 2 diabetes mellitus with diabetic chronic kidney disease; F03.90 Unspecified dementia, unspecified severity, without behavioral disturbance, psychotic disturbance, mood disturbance, and anxiety; I25.10 Atherosclerotic heart disease of native coronary artery without angina pectoris; Z20.822 Contact with and (suspected) exposure to COVID-19; E78.5 Hyperlipidemia, unspecified; E11.40 Type 2 diabetes mellitus with diabetic neuropathy, unspecified; E11.69 Type 2 diabetes mellitus with other specified complication; J45.909 Unspecified asthma, uncomplicated; K57.90 Diverticulosis of intestine, part unspecified, without perforation or abscess without bleeding; K59.00 Constipation, unspecified; K74.60 Unspecified cirrhosis of liver; M71.22 Synovial cyst of popliteal space [Baker], left knee; F17.200 Nicotine dependence, unspecified, uncomplicated; D63.1 Anemia in chronic kidney disease; I05.0 Rheumatic mitral stenosis; M10.9 Gout, unspecified; L97.529 Non-pressure chronic ulcer of other part of left foot with unspecified severity; E11.621 Type 2 diabetes mellitus with foot ulcer; R09.02 Hypoxemia; Z79.02 Long term (current) use of antithrombotics/antiplatelets; Z95.5 Presence of coronary angioplasty implant and graft; Z99.2 Dependence on renal dialysis; I25.2 Old myocardial infarction; Z90.49 Acquired absence of other specified parts of digestive tract; Z79.4 Long term (current) use of insulin; Z79.82 Long term (current) use of aspirin; Z82.49 Family history of ischemic heart disease and other diseases of the circulatory system; Z79.899 Other long term (current) drug therapy
CPT/HCPCS: 36415; 36600; 37228; 37232; 71045; 73721; 74176; 75635; 75710; 80048; 80053; 80076; 80202; 82270; 82375; 82550; 82553; 82607; 82728; 82746; 82805; 82962; 83036; 83540; 83550; 84132; 84145; 84484; 85025; 85044; 85347; 85651; 86705; 86709; 86803; 87070; 87075; 87077; 87186; 87340; 87426; 88305; 88311; 90935; 93005; 93306; 93923; 93970; 94640; 97162; 97166; 99291; C1725; C1760; C1769; C1887; C1893; C1894; C2623; C9803; J0610; J0696; J0885; J1644; J1650; J1815; J2250; J2370; J2405; J2543; J2704; J3010; J3370; J3490; J7060; Q9967

== ENCOUNTER 2022-08-28 11:02 | Emergency (ER) | payer MEDICARE ==
[~2022-08-28] VITALS: Ht 175.3 cm; Wt 104.0 kg
[~2022-08-28 11:02] MED LIST changes: -GABA300S PO; +GABA300S4 PO
[2022-08-28 11:49] LABS: BASOPHILS % 0.6 % (0.0-2.0); EOSINOPHILS % 4.6 % (0.0-5.0); HEMATOCRIT. 26.5 % (42.0-52.0); HEMOGLOBIN. 8.4 g/dL (14.0-18.0); LYMPHOCYTES % 22.4 % (20.0-50.0); MEAN CORPUSCULAR HEMOGLOBIN 31.6 pg (28.0-32.0); MEAN CORPUSCULAR VOLUME 99.8 fL (80.0-94.0); MEAN PLATELET VOLUME 7.8 fl (7.4-10.4); MONOCYTES % 7.6 % (2.0-8.0); NEUTROPHILS % 64.8 % (40.0-76.0); PLATELET 187 x1000/uL (130-400); RED BLOOD CELL COUNT 2.66 mill/uL (4.7-6.1); RED CELL DISTRIBUTION WIDTH 17.9 % (11.6-14.6)
[2022-08-28 11:53] LABS: CHLORIDE 104 mEq/L (98-107)
[2022-08-28 17:03] VITALS: BP 146/53
== END 2022-08-28 18:05 | disposition left against medical advice (07) ==
LOC: ER 11:02 → EDBEDREQ 15:15 → ER 18:05
DX: I12.0 Hypertensive chronic kidney disease with stage 5 chronic kidney disease or end stage renal disease (principal); E11.22 Type 2 diabetes mellitus with diabetic chronic kidney disease; N18.6 End stage renal disease; E87.70 Fluid overload, unspecified; F17.200 Nicotine dependence, unspecified, uncomplicated; Z79.899 Other long term (current) drug therapy; Z79.82 Long term (current) use of aspirin
CPT/HCPCS: 36415; 71045; 80053; 84484; 85025; 86850; 86900; 93005; 99285